=== PATIENT | male | born 1960 | race Caucasian/White ===

== ENCOUNTER 2017-01-17 23:25 | Emergency (ER) | payer MEDICAID, OTHER ==
[~2017-01-17] VITALS: Ht 180.3 cm; Wt 81.6 kg
[~2017-01-17 23:25] MED LIST: BUPR75TA3 PO; HYDR-552 PO; RISP0.253 PO
--- NOTE | 2017-01-17 23:32 | NUR ---
Called fr [facility], no answer.
--- NOTE | 2017-01-18 | NUR ---
TO BED 8 AMBULATORY C/O SUICIDAL IDEATION WITH PLAN TO HANG HIMSELF. PT AAOX4 NO ACUTE DISTRESS NOTED, RESP EVEN AND UNALBORED. NOTED HEAVY SMEEL OF ETOH. PT ADMITS TO DRINKING ALCOHOL TONIGHT. PLACE PT ON HOSPITAL GOWN, ALL SHARPS AND BELONGINGS REMOVED FROM ROOM. CALL LIGHT WITHIN REACH. WILL CONTINUE TO MONITOR PT CLOSELY.
[2017-01-18 00:41] LABS: BASOPHILS # (AUTO) 0.1 /CMM (0.0-0.2); BASOPHILS % (AUTO) 0.7 % (0.0-2.0); EOSINOPHILS # (AUTO) 0.4 /CMM (0.0-0.7); EOSINOPHILS % (AUTO) 4.9 % (0.0-6.0); HEMATOCRIT 37 % (39-51); HEMOGLOBIN 12.5 g/dL (13.5-17.5); LYMPHOCYTES # (AUTO) 2.9 /CMM (0.8-4.8); LYMPHOCYTES % (AUTO) 31.7 % (20.0-44.0); MEAN CORPUSCULAR HEMOGLOBIN 30 PG (26.0-33.0); MEAN CORPUSCULAR HGB CONC 34 g/dl (31.0-36.0); MEAN CORPUSCULAR VOLUME 88 fL (80-96); MONOCYTES # (AUTO) 0.6 /CMM (0.1-1.30); MONOCYTES % (AUTO) 6.9 % (2.0-12.0); NEUTROPHILS # (AUTO) 5.1 /CMM (1.8-8.9); NEUTROPHILS % (AUTO) 55.8 % (43.0-81.0); PLATELET COUNT (AUTO) 271 /CMM (150-450); RDW COEFFICIENT OF VARIATION 13.5 (11.5-15.0); WHITE BLOOD COUNT (AUTO) 9.1 K/uL (4.3-11.0)
[2017-01-18 00:52] LABS: CALCIUM, SERUM 8.5 mg/dL (8.5-10.1); CREATININE 1.1 mg/dL (0.6-1.3); POTASSIUM 3.1 mmol/L (3.5-5.1)
[2017-01-18] MEDS ORDERED: WATER FOR INJECTION,STERILE 10 ML ONE (00:55)
[2017-01-18] MEDS ORDERED: OLANZAPINE 10 MG VIAL IM ONE (00:55)
[2017-01-18 00:56] LABS: ALBUMIN 3.4 g/dL (3.4-5.0); BILIRUBIN,DIRECT 0.1 mg/dL (0.0-0.2); BILIRUBIN,TOTAL 0.4 mg/dL (0.2-1.0); TOTAL PROTEIN, SERUM 6.8 g/dL (6.4-8.2)
[2017-01-18 00:58] LABS: SALICYLATE 0.8 mg/dL (2.8-20.0)
[2017-01-18] MEDS: OLANZAPINE 10 MG VIAL IM ONE (01:14)
--- NOTE | 2017-01-18 01:14 | NUR ---
PT MEDICATED ORDERED.
--- NOTE | 2017-01-18 02:25 | NUR ---
PT ASLEEP, NO ACUTE DISTRESS NOTED, RESP EVEN AND UNLABORED. CALL LIGHT WITHIN [facility]. WILL CONTINUE TO MONITOR PT.
[2017-01-18 02:52] LABS: BILIRUBIN,URINE NEGATIVE (NEGATIVE); BLOOD, URINE NEGATIVE Ery/uL (NEGATIVE); KETONES,URINE NEGATIVE (NEGATIVE); LEUKOCYTE ESTERASE ,URINE NEGATIVE (NEGATIVE); NITRITE, URINE NEGATIVE (NEGATIVE); PROTEIN,URINE NEGATIVE (NEGATIVE); UGLUCOSE NEGATIVE (NEGATIVE); UROBILINOGEN,URINE 0.2 EU/dL (0.2)
[2017-01-18 02:55] LABS: APPEARANCE,URINE CLEAR (CLEAR); COLOR,URINE STRAW (YELLOW)
[2017-01-18 03:04] LABS: CANNABINOID, URINE NEGATIVE (NEGATIVE); PHENCYCLIDINE SCREEN,URINE NEGATIVE (NEGATIVE)
--- NOTE | 2017-01-18 04:25 | NUR ---
PT ASLEEP, NO ACUTE DISTRESS NOTED, RESP EVEN AND UNLABORED. CALL LIGHT WITHIN REACH. WILL CONTINUE TO MONITOR PT CLOSELY.
--- NOTE | 2017-01-18 04:37 | NUR ---
BRITNEY MURRAY AT BEDSIDE TO RE-EVAL PT. PT DENIES SI OR HI AT THIS TIME. PT STATES "I FEEL A LOT BETTER".
[2017-01-18] MEDS ORDERED: POTASSIUM CHLORIDE 20 MEQ TAB.PRT.SR PO ONE (05:40)
[2017-01-18] MEDS: POTASSIUM CHLORIDE 20 MEQ TAB.PRT.SR PO ONE (05:42)
--- NOTE | 2017-01-18 05:50 | NUR ---
Patient discharged to home in stable condition. Written and verbal after care instructions given. Patient verbalizes understanding of instruction. ambulatory with a steady gait noted. pt aaox4 no acute distress noted, resp even and unlabored. pt denies si or hi at this time.
[2017-01-18 05:51] VITALS: BP 135/73
== END 2017-01-18 05:52 | disposition home or self-care (01) ==
LOC: ER 23:28
DX: F20.9 Schizophrenia, unspecified (principal); F10.129 Alcohol abuse with intoxication, unspecified; F32.9 Major depressive disorder, single episode, unspecified; F17.200 Nicotine dependence, unspecified, uncomplicated; R79.89 Other specified abnormal findings of blood chemistry; Z91.19 Patient's noncompliance with other medical treatment and regimen
CPT/HCPCS: 36415; 80048; 80076; 80305; 80329; 81001; 82962; 85025; 99284; A4606; G0480 ×2; J3490; Z7610; 81000-TC; G6039-TC

== ENCOUNTER 2017-04-13 00:20 | Emergency (ER) | payer OTHER ==
[~2017-04-13] VITALS: Ht 182.9 cm; Wt 81.6 kg
[2017-04-13 00:25] VITALS: BP 160/105
== END 2017-04-13 01:18 | disposition home or self-care (01) ==
LOC: ER 00:23
DX: K08.89 Other specified disorders of teeth and supporting structures (principal); F32.9 Major depressive disorder, single episode, unspecified; F20.9 Schizophrenia, unspecified; F17.200 Nicotine dependence, unspecified, uncomplicated
CPT/HCPCS: 99282; A4606; Z7610

== ENCOUNTER 2017-04-21 00:26 | Emergency (ER) | payer OTHER ==
[~2017-04-21] VITALS: Ht 180.3 cm; Wt 81.6 kg
--- NOTE | 2017-04-21 00:38 | NUR ---
called pt in wr, no response
[2017-04-21 02:20] VITALS: BP 160/110
== END 2017-04-21 02:43 | disposition home or self-care (01) ==
LOC: ER 00:29
DX: Z76.0 Encounter for issue of repeat prescription (principal); F32.9 Major depressive disorder, single episode, unspecified; I10 Essential (primary) hypertension; F20.9 Schizophrenia, unspecified; F17.200 Nicotine dependence, unspecified, uncomplicated; Z98.890 Other specified postprocedural states
CPT/HCPCS: 99283; A4606; Z7610

== ENCOUNTER 2017-05-31 23:15 | Emergency (ER) | payer OTHER ==
[~2017-05-31] VITALS: Ht 175.3 cm; Wt 81.6 kg
--- NOTE | 2017-06-01 00:24 | NUR ---
CALLED FOR TRIAGE; STATES "AM GONNA USE THE RESTROOM AND WILL BE BACK"
[2017-06-01 00:46] VITALS: BP 154/105
== END 2017-06-01 01:10 | disposition home or self-care (01) ==
LOC: ER 23:25
DX: R07.81 Pleurodynia (principal); F32.9 Major depressive disorder, single episode, unspecified; F17.200 Nicotine dependence, unspecified, uncomplicated; F20.9 Schizophrenia, unspecified; Y04.0XXA Assault by unarmed brawl or fight, initial encounter; Y92.89 Other specified places as the place of occurrence of the external cause; Y93.89 Activity, other specified; Y99.8 Other external cause status
CPT/HCPCS: 99282; A4606; Z7610

== ENCOUNTER 2017-07-12 23:39 | Emergency (ER) | payer OTHER ==
[~2017-07-12] VITALS: Ht 182.9 cm; Wt 81.6 kg
[2017-07-13 00:01] VITALS: BP 158/116
== END 2017-07-13 01:16 | disposition home or self-care (01) ==
LOC: ER 23:53
DX: K21.9 Gastro-esophageal reflux disease without esophagitis (principal); F17.200 Nicotine dependence, unspecified, uncomplicated
CPT/HCPCS: 99283; A4606; Z7610

== ENCOUNTER 2017-07-14 00:33 | Emergency (ER) | payer OTHER ==
[~2017-07-14] VITALS: Ht 177.8 cm; Wt 90.7 kg
[2017-07-14] MEDS ORDERED: diphenhydrAMINE HCL 50 MG/ML VIAL ONE (00:36)
[2017-07-14] MEDS ORDERED: HALOPERIDOL LACTATE INJ 5 MG/ML VIAL ONE ×2 (00:37→01:40)
--- NOTE | 2017-07-14 00:40 | NUR ---
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 PER EMS PATIENT WAS LAYING ON THE GROUND, BYSTANDERS CALLED 911. PT ASSISTED TO ER BED, SKIN WARM AND DRY, RR EVEN AND UNLABORED. PT PLACED ON FUEL TECHNICIAN. AWAITING ORDERS FROM PROVIDER
--- NOTE | 2017-07-14 00:43 | NUR ---
MEDICATED PT ORDERED
[2017-07-14] MEDS ORDERED: diphenhydrAMINE HCL 50 MG/ML VIAL IM ONE (01:00)
[2017-07-14] MEDS ORDERED: HALOPERIDOL LACTATE INJ 5 MG/ML VIAL IM ONE ×2 (01:00→02:00)
--- NOTE | 2017-07-14 04:17 | NUR ---
PATIENT IS RESTING IN ER BED, NAD NOTED, SKIN WARM AND DRY. PATIENT IS BREATHING EFFORTLESSLY. WILL CONTINUE TO MONITOR
--- NOTE | 2017-07-14 06:51 | NUR ---
pt ok to discharge per dr self. Patient discharged to home in stable condition. Written and verbal after care instructions given. Patient verbalizes understanding of instruction.Patient is awake and alert to self, day, and place. pt ambulatory with a steady gait
[2017-07-14 06:52] VITALS: BP 138/79
== END 2017-07-14 06:52 | disposition home or self-care (01) ==
LOC: ER 00:35
DX: F10.129 Alcohol abuse with intoxication, unspecified (principal); R79.89 Other specified abnormal findings of blood chemistry; F17.200 Nicotine dependence, unspecified, uncomplicated; Z98.890 Other specified postprocedural states
CPT/HCPCS: 82962; 96372 ×3; 99284; A4606; J1200; J1630 ×2; Z7610

== ENCOUNTER 2017-07-25 22:40 | Emergency (ER) | payer OTHER ==
[~2017-07-25] VITALS: Ht 167.6 cm; Wt 81.6 kg
--- NOTE | 2017-07-25 23:38 | NUR ---
PT MUKESH C/O SENT FR [facility] FOR MEDICAL CLEARANCE. PT AOX3 RR EVEN AND UNLABORED. NO SOB NOTED. NAD NOTED. NO NVD AT THIS TIME. PT GOWNED WAITING FOR MD RIZVI. URINE COLLECTED.
[2017-07-25 23:49] LABS: BASOPHILS # (AUTO) 0.1 /CMM (0.0-0.2); BASOPHILS % (AUTO) 0.9 % (0.0-2.0); EOSINOPHILS # (AUTO) 0.3 /CMM (0.0-0.7); EOSINOPHILS % (AUTO) 3.2 % (0.0-6.0); HEMATOCRIT 44 % (39-51); HEMOGLOBIN 14.7 g/dL (13.5-17.5); LYMPHOCYTES # (AUTO) 2.3 /CMM (0.8-4.8); MEAN CORPUSCULAR HEMOGLOBIN 29 PG (26.0-33.0); MEAN CORPUSCULAR HGB CONC 34 g/dl (31.0-36.0); MEAN CORPUSCULAR VOLUME 87 fL (80-96); MONOCYTES % (AUTO) 11.5 % (2.0-12.0); NEUTROPHILS # (AUTO) 5.2 /CMM (1.8-8.9); NEUTROPHILS % (AUTO) 58.4 % (43.0-81.0); PLATELET COUNT (AUTO) 328 /CMM (150-450); RDW COEFFICIENT OF VARIATION 15.2 (11.5-15.0); RED BLOOD CELL COUNT(AUTO) 5.06 MIL/uL (4.5-6.0); WHITE BLOOD COUNT (AUTO) 8.8 K/uL (4.3-11.0)
[2017-07-25 23:56] LABS: APPEARANCE,URINE CLEAR (CLEAR); BILIRUBIN,URINE NEGATIVE (NEGATIVE); BLOOD, URINE NEGATIVE Ery/uL (NEGATIVE); COLOR,URINE YELLOW (YELLOW); KETONES,URINE NEGATIVE (NEGATIVE); LEUKOCYTE ESTERASE ,URINE NEGATIVE (NEGATIVE); NITRITE, URINE NEGATIVE (NEGATIVE); PROTEIN,URINE NEGATIVE (NEGATIVE); UGLUCOSE NEGATIVE (NEGATIVE); UROBILINOGEN,URINE 0.2 EU/dL (0.2)
[2017-07-25 23:58] LABS: CALCIUM, SERUM 9.8 mg/dL (8.5-10.1); CARBON DIOXIDE 29 mmol/L (21-32); CHLORIDE 103 mmol/L (98-107); CREATININE 1.2 mg/dL (0.6-1.3); GLUCOSE 86 mg/dL (74-106); SODIUM SERUM 140 mmol/L (136-145); UREA NITROGEN, BLOOD 20 mg/dL (7-18)
[2017-07-26 00:04] LABS: ALANINE AMINOTRANSFERASE 63 U/L (12-78); ALBUMIN 4.3 g/dL (3.4-5.0); ALCOHOL, BLOOD < 3 mg/dL (0-0); ALKALINE PHOSPHATASE 77 U/L (46-116); ASPARTATE AMINOTRANSFERASE 28 U/L (15-37); BILIRUBIN,DIRECT 0.1 mg/dL (0.0-0.2); BILIRUBIN,TOTAL 0.4 mg/dL (0.2-1.0); TOTAL PROTEIN, SERUM 8.3 g/dL (6.4-8.2)
[2017-07-26 00:05] LABS: ACETAMINOPHEN 0 ug/ml (10-30); SALICYLATE 0.7 mg/dL (2.8-20.0)
--- NOTE | 2017-07-26 00:17 | NUR ---
Patient discharged to home in stable condition. Written and verbal after care instructions given. Patient verbalizes understanding of instruction. ambulatory with a steady gait
[2017-07-26 00:18] VITALS: BP 123/78
== END 2017-07-26 00:19 | disposition home or self-care (01) ==
LOC: ER 22:41
DX: F32.9 Major depressive disorder, single episode, unspecified (principal); F17.200 Nicotine dependence, unspecified, uncomplicated; F20.9 Schizophrenia, unspecified; Z98.890 Other specified postprocedural states
CPT/HCPCS: 36415; 80048; 80076; 80305; 80329; 81001; 85025; 99284; A4606; G0480 ×2; Z7610; 81000-TC

== ENCOUNTER 2017-09-07 22:49 | Emergency (ER) | payer OTHER ==
[~2017-09-07] VITALS: Ht 182.9 cm; Wt 86.2 kg
--- NOTE | 2017-09-07 23:13 | NUR ---
ATTEMPTED TO CONTACT PT X 1 NO ANSWER
[2017-09-08 01:24] LABS: BASOPHILS # (AUTO) 0.1 /CMM (0.0-0.2); BASOPHILS % (AUTO) 0.6 % (0.0-2.0); EOSINOPHILS # (AUTO) 0.4 /CMM (0.0-0.7); HEMATOCRIT 43 % (39-51); HEMOGLOBIN 14.3 g/dL (13.5-17.5); LYMPHOCYTES # (AUTO) 2.6 /CMM (0.8-4.8); LYMPHOCYTES % (AUTO) 28.9 % (20.0-44.0); MEAN CORPUSCULAR HEMOGLOBIN 29 PG (26.0-33.0); MEAN CORPUSCULAR HGB CONC 33 g/dl (31.0-36.0); MEAN CORPUSCULAR VOLUME 87 fL (80-96); MONOCYTES # (AUTO) 0.7 /CMM (0.1-1.30); MONOCYTES % (AUTO) 8.2 % (2.0-12.0); NEUTROPHILS # (AUTO) 5.2 /CMM (1.8-8.9); NEUTROPHILS % (AUTO) 58.3 % (43.0-81.0); PLATELET COUNT (AUTO) 299 /CMM (150-450); RDW COEFFICIENT OF VARIATION 14.2 (11.5-15.0); RED BLOOD CELL COUNT(AUTO) 4.94 MIL/uL (4.5-6.0)
[2017-09-08 01:43] LABS: ALANINE AMINOTRANSFERASE 51 U/L (12-78); ALBUMIN 3.9 g/dL (3.4-5.0); ALCOHOL, BLOOD < 3 mg/dL (0-0); ALKALINE PHOSPHATASE 91 U/L (46-116); ASPARTATE AMINOTRANSFERASE 23 U/L (15-37); BILIRUBIN,TOTAL 0.3 mg/dL (0.2-1.0); CALCIUM, SERUM 9.7 mg/dL (8.5-10.1); CARBON DIOXIDE 25 mmol/L (21-32); CHLORIDE 105 mmol/L (98-107); CREATININE 1.2 mg/dL (0.6-1.3); GLUCOSE 83 mg/dL (74-106); POTASSIUM 3.4 mmol/L (3.5-5.1); SODIUM SERUM 140 mmol/L (136-145); TOTAL PROTEIN, SERUM 7.6 g/dL (6.4-8.2); UREA NITROGEN, BLOOD 21 mg/dL (7-18)
[2017-09-08 01:46] LABS: ACETAMINOPHEN 0 ug/ml (10-30); SALICYLATE 0.7 mg/dL (2.8-20.0)
[2017-09-08 02:33] LABS: APPEARANCE,URINE SL CLOUDY (CLEAR); BILIRUBIN,URINE NEGATIVE (NEGATIVE); BLOOD, URINE NEGATIVE Ery/uL (NEGATIVE); COLOR,URINE YELLOW (YELLOW); KETONES,URINE NEGATIVE (NEGATIVE); LEUKOCYTE ESTERASE ,URINE NEGATIVE (NEGATIVE); NITRITE, URINE NEGATIVE (NEGATIVE); PROTEIN,URINE NEGATIVE (NEGATIVE); UGLUCOSE NEGATIVE (NEGATIVE); UROBILINOGEN,URINE 0.2 EU/dL (0.2)
--- NOTE | 2017-09-08 03:22 | NUR ---
Patient discharged to home in stable condition. Written and verbal after care instructions given. Patient verbalizes understanding of instruction.
[2017-09-08 03:23] VITALS: BP 128/89
== END 2017-09-08 03:26 | disposition home or self-care (01) ==
LOC: ER 22:54
DX: R45.851 Suicidal ideations (principal); F10.10 Alcohol abuse, uncomplicated; Z98.890 Other specified postprocedural states
CPT/HCPCS: 36415; 80048; 80076; 80305; 80329; 81001; 85025; 99284; A4606; G0480 ×2; Z7610; 81000-TC

== ENCOUNTER 2017-12-29 19:05 | Emergency (ER) | payer OTHER ==
[~2017-12-29] VITALS: Ht 182.9 cm; Wt 81.6 kg
[2017-12-29 19:18] VITALS: BP 127/89
--- NOTE | 2017-12-29 19:19 | NUR ---
PT AMBULATORY TO ER BED 14. PT BIB SELF, HERE FOR MEDICAL CLEARANCE FOR [facility]. PT PLACED ON ASSEMBLER BICYCLE. VSS/RESP EVEN UNLABORED/NAD NOTED/SKIN WARM AND DRY/AFEBRILE/AOX4. MD AT BEDSIDE FOR EVAL.
[2017-12-29 20:07] LABS: BASOPHILS # (AUTO) 0.1 /CMM (0.0-0.2); BASOPHILS % (AUTO) 0.5 % (0.0-2.0); EOSINOPHILS # (AUTO) 0.2 /CMM (0.0-0.7); EOSINOPHILS % (AUTO) 1.3 % (0.0-6.0); HEMATOCRIT 44 % (39-51); HEMOGLOBIN 15.3 g/dL (13.5-17.5); LYMPHOCYTES # (AUTO) 1.8 /CMM (0.8-4.8); MEAN CORPUSCULAR HEMOGLOBIN 30 PG (26.0-33.0); MEAN CORPUSCULAR HGB CONC 35 g/dl (31.0-36.0); MEAN CORPUSCULAR VOLUME 86 fL (80-96); MONOCYTES # (AUTO) 0.6 /CMM (0.1-1.30); MONOCYTES % (AUTO) 4.5 % (2.0-12.0); NEUTROPHILS # (AUTO) 9.9 /CMM (1.8-8.9); NEUTROPHILS % (AUTO) 79.7 % (43.0-81.0); PLATELET COUNT (AUTO) 345 /CMM (150-450); RDW COEFFICIENT OF VARIATION 13.9 (11.5-15.0); RED BLOOD CELL COUNT(AUTO) 5.14 MIL/uL (4.5-6.0); WHITE BLOOD COUNT (AUTO) 12.6 K/uL (4.3-11.0)
[2017-12-29 20:15] LABS: CALCIUM, SERUM 10.1 mg/dL (8.5-10.1); CARBON DIOXIDE 29 mmol/L (21-32); CHLORIDE 102 mmol/L (98-107); CREATININE 1.1 mg/dL (0.6-1.3); GLUCOSE 77 mg/dL (74-106); POTASSIUM 4.5 mmol/L (3.5-5.1); SODIUM SERUM 138 mmol/L (136-145); UREA NITROGEN, BLOOD 20 mg/dL (7-18)
[2017-12-29 20:20] LABS: ALANINE AMINOTRANSFERASE 36 U/L (12-78); ALBUMIN 4.3 g/dL (3.4-5.0); ALCOHOL, BLOOD < 3 mg/dL (0-0); ALKALINE PHOSPHATASE 81 U/L (46-116); ASPARTATE AMINOTRANSFERASE 21 U/L (15-37); BILIRUBIN,DIRECT 0.2 mg/dL (0.0-0.2); BILIRUBIN,TOTAL 0.6 mg/dL (0.2-1.0); TOTAL PROTEIN, SERUM 8.5 g/dL (6.4-8.2)
[2017-12-29 20:21] LABS: ACETAMINOPHEN < 10 ug/ml (10-30); SALICYLATE 0.6 mg/dL (2.8-20.0)
[2017-12-29 21:21] LABS: APPEARANCE,URINE Clear (CLEAR); BILIRUBIN,URINE Negative (NEGATIVE); BLOOD, URINE Negative Ery/uL (NEGATIVE); COLOR,URINE Yellow (YELLOW); KETONES,URINE Negative (NEGATIVE); LEUKOCYTE ESTERASE ,URINE Negative (NEGATIVE); NITRITE, URINE Negative (NEGATIVE); PROTEIN,URINE Negative (NEGATIVE); UGLUCOSE Negative (NEGATIVE); UROBILINOGEN,URINE 0.2 EU/dL (0.2)
--- NOTE | 2017-12-29 22:36 | NUR ---
PT ACCEPTED TO [facility] BY DR MARTIN. # FOR REPORT [phone]
--- NOTE | 2017-12-29 22:40 | NUR ---
BENJY CALLED [facility] [phone] TRANSPORT #[id number]
--- NOTE | 2017-12-29 23:15 | NUR ---
REPORT CALLED TO STANLEY WITH [facility] FOR MELISSA.
--- NOTE | 2017-12-30 00:28 | NUR ---
REPORT GIVEN TO ALICIA FOR PT TRANSFER TO [facility] FOR MELISSA.
== END 2017-12-30 00:30 ==
LOC: ER 19:06
DX: F20.9 Schizophrenia, unspecified (principal); Z00.00 Encounter for general adult medical examination without abnormal findings; I10 Essential (primary) hypertension; K21.9 Gastro-esophageal reflux disease without esophagitis; F10.10 Alcohol abuse, uncomplicated; Z98.890 Other specified postprocedural states
CPT/HCPCS: 36415; 80048; 80076; 80305; 80329; 81001; 85025; 99285; A4606; G0480 ×2; J7050; Z7610; 81000-TC

== ENCOUNTER 2018-04-10 00:16 | Emergency (ER) | payer OTHER ==
[~2018-04-10] VITALS: Ht 177.8 cm; Wt 81.6 kg
--- NOTE | 2018-04-10 00:20 | NUR ---
CALLED FOR TRIAGE "IN THE RESTROOM"
--- NOTE | 2018-04-10 00:30 | NUR ---
GRACIA AGAIN "IN RESTROOM"
--- NOTE | 2018-04-10 00:36 | NUR ---
CALLED BY LAB. INFORMED "STILL IN RESTROOM"
--- NOTE | 2018-04-10 00:45 | NUR ---
INFORMED BY WOOD CLUB NECK WHIPPER "PT IS NOT IN RESTROOM OR LOBBY"
[2018-04-10 01:29] VITALS: BP 138/78
[2018-04-10 01:33] LABS: BASOPHILS # (AUTO) 0.1 /CMM (0.0-0.2); BASOPHILS % (AUTO) 0.7 % (0.0-2.0); EOSINOPHILS % (AUTO) 1.4 % (0.0-6.0); HEMATOCRIT 41 % (39-51); HEMOGLOBIN 14.1 g/dL (13.5-17.5); LYMPHOCYTES # (AUTO) 1.8 /CMM (0.8-4.8); LYMPHOCYTES % (AUTO) 21.6 % (20.0-44.0); MEAN CORPUSCULAR HEMOGLOBIN 31 PG (26.0-33.0); MEAN CORPUSCULAR HGB CONC 34 g/dl (31.0-36.0); MEAN CORPUSCULAR VOLUME 91 fL (80-96); MONOCYTES # (AUTO) 0.5 /CMM (0.1-1.30); MONOCYTES % (AUTO) 6.6 % (2.0-12.0); NEUTROPHILS # (AUTO) 5.7 /CMM (1.8-8.9); NEUTROPHILS % (AUTO) 69.7 % (43.0-81.0); PLATELET COUNT (AUTO) 306 /CMM (150-450); RED BLOOD CELL COUNT(AUTO) 4.55 MIL/uL (4.5-6.0); WHITE BLOOD COUNT (AUTO) 8.2 K/uL (4.3-11.0)
[2018-04-10 01:44] LABS: CALCIUM, SERUM 9.3 mg/dL (8.5-10.1); CREATININE 1.1 mg/dL (0.6-1.3); POTASSIUM 3.8 mmol/L (3.5-5.1)
[2018-04-10 01:50] LABS: BILIRUBIN,DIRECT 0.1 mg/dL (0.0-0.2); BILIRUBIN,TOTAL 0.6 mg/dL (0.2-1.0); TOTAL PROTEIN, SERUM 7.8 g/dL (6.4-8.2)
[2018-04-10 01:51] LABS: SALICYLATE 0.7 mg/dL (2.8-20.0)
[2018-04-10 05:36] LABS: APPEARANCE,URINE CLEAR (CLEAR); BILIRUBIN,URINE NEGATIVE (NEGATIVE); BLOOD, URINE NEGATIVE Ery/uL (NEGATIVE); COLOR,URINE YELLOW (YELLOW); KETONES,URINE NEGATIVE (NEGATIVE); LEUKOCYTE ESTERASE ,URINE NEGATIVE (NEGATIVE); NITRITE, URINE NEGATIVE (NEGATIVE); PROTEIN,URINE NEGATIVE (NEGATIVE); UGLUCOSE NEGATIVE (NEGATIVE); UROBILINOGEN,URINE 0.2 EU/dL (0.2)
== END 2018-04-10 06:49 | disposition home or self-care (01) ==
LOC: ER 00:16
DX: Z04.6 Encounter for general psychiatric examination, requested by authority (principal); F32.9 Major depressive disorder, single episode, unspecified; I10 Essential (primary) hypertension; K21.9 Gastro-esophageal reflux disease without esophagitis; F20.9 Schizophrenia, unspecified; Z98.890 Other specified postprocedural states
CPT/HCPCS: 36415; 80048-TC; 80076-TC; 80305; 81000-TC; 85025-TC; A4606; G0480; Z7610

== ENCOUNTER 2018-04-10 08:28 | Emergency (ER) | payer OTHER ==
[~2018-04-10] VITALS: Ht 182.9 cm; Wt 79.4 kg
[2018-04-10 08:31] VITALS: BP 138/90
[2018-04-10] MEDS ORDERED: predniSONE 20 MG TABLET ONE (08:51)
[2018-04-10] MEDS ORDERED: IPRATROPIUM NEB FS 0.5 MG/2.5 ML AMPUL.NEB ONE (08:54)
[2018-04-10] MEDS ORDERED: ALBUTEROL FS 2.5 MG/3 ML VIAL.NEB ONE (08:54)
[2018-04-10] MEDS ORDERED: ALBUTEROL FS 2.5 MG/3 ML VIAL.NEB NEB ONE (09:00)
[2018-04-10] MEDS ORDERED: predniSONE 20 MG TABLET PO ONE (09:00)
[2018-04-10] MEDS ORDERED: IPRATROPIUM NEB FS 0.5 MG/2.5 ML AMPUL.NEB NEB ONE (09:00)
== END 2018-04-10 09:30 | disposition home or self-care (01) ==
LOC: ER 08:33
DX: J44.1 Chronic obstructive pulmonary disease with (acute) exacerbation (principal); I10 Essential (primary) hypertension; K21.9 Gastro-esophageal reflux disease without esophagitis; F20.9 Schizophrenia, unspecified; Z87.891 Personal history of nicotine dependence; Z98.890 Other specified postprocedural states
CPT/HCPCS: A4606; Z7610

== ENCOUNTER 2018-04-27 00:44 | Emergency (ER) | payer OTHER ==
[~2018-04-27] VITALS: Ht 180.3 cm; Wt 81.6 kg
--- NOTE | 2018-04-27 00:55 | NUR ---
PT NOT IN LOBBY.
--- NOTE | 2018-04-27 01:30 | NUR ---
INFORMED PT "STEPPED OUT"
--- NOTE | 2018-04-27 02:02 | NUR ---
PT STILL NOT IN LOBBY OR OUTSIDE ER.
--- NOTE | 2018-04-27 02:10 | NUR ---
STATES "I DONT WANNA COME INSIDE THE ER UNTIL I PROVIDE URINE. SO I WILL STAY HERE AND WATCH TV AND WILL LET YOU KNOW AFTER I URINATE". GIVEN WATER TO DRINK.
[2018-04-27 02:26] LABS: BASOPHILS % (AUTO) 0.5 % (0.0-2.0); EOSINOPHILS % (AUTO) 2.2 % (0.0-6.0); HEMATOCRIT 44 % (39-51); HEMOGLOBIN 14.6 g/dL (13.5-17.5); LYMPHOCYTES # (AUTO) 2.4 /CMM (0.8-4.8); LYMPHOCYTES % (AUTO) 27.1 % (20.0-44.0); MEAN CORPUSCULAR HEMOGLOBIN 30 PG (26.0-33.0); MEAN CORPUSCULAR HGB CONC 34 g/dl (31.0-36.0); MEAN CORPUSCULAR VOLUME 91 fL (80-96); MONOCYTES # (AUTO) 0.7 /CMM (0.1-1.30); MONOCYTES % (AUTO) 7.5 % (2.0-12.0); NEUTROPHILS # (AUTO) 5.6 /CMM (1.8-8.9); NEUTROPHILS % (AUTO) 62.7 % (43.0-81.0); PLATELET COUNT (AUTO) 298 /CMM (150-450); RDW COEFFICIENT OF VARIATION 13.5 (11.5-15.0); RED BLOOD CELL COUNT(AUTO) 4.79 MIL/uL (4.5-6.0)
[2018-04-27 02:50] LABS: CALCIUM, SERUM 8.9 mg/dL (8.5-10.1); CREATININE 1.1 mg/dL (0.6-1.3)
[2018-04-27 02:56] LABS: BILIRUBIN,DIRECT 0.1 mg/dL (0.0-0.2); BILIRUBIN,TOTAL 0.6 mg/dL (0.2-1.0)
[2018-04-27 03:00] LABS: SALICYLATE 0.6 mg/dL (2.8-20.0)
--- NOTE | 2018-04-27 04:20 | NUR ---
AMBULATED TO ROOM WITH STEADY GAIT AFTER COLLECTING URINE. DENIES ANY MEDICAL C/O AT THIS TIME. RESP EVEN AND UNLABORED.
[2018-04-27 04:42] LABS: APPEARANCE,URINE CLEAR (CLEAR); BILIRUBIN,URINE NEGATIVE (NEGATIVE); BLOOD, URINE NEGATIVE Ery/uL (NEGATIVE); COLOR,URINE YELLOW (YELLOW); KETONES,URINE NEGATIVE (NEGATIVE); LEUKOCYTE ESTERASE ,URINE NEGATIVE (NEGATIVE); NITRITE, URINE NEGATIVE (NEGATIVE); PH,URINE 5.5 (5.0-8.0); PROTEIN,URINE NEGATIVE (NEGATIVE); UGLUCOSE NEGATIVE (NEGATIVE); UROBILINOGEN,URINE 0.2 EU/dL (0.2)
--- NOTE | 2018-04-27 05:47 | NUR ---
SPOKE TO ROCK/BROCK AT [facility] AND STATED "FAXED ALL TODAY'S RECORDS FOR REVIEW AND SEND PT AFTER 629". ALL RECORDS FAXED REQUESTED.
--- NOTE | 2018-04-27 06:43 | NUR ---
SPOKE TO ROCK GUTIÉRREZ AND STATED "I WILL CALL YOU SOON MY VIDEO INTERN IS DONE REVIEWING THE PAPERWORK".
--- NOTE | 2018-04-27 07:11 | NUR ---
REPORT GIVEN TO BELLE FUNES FOR MELISSA
--- NOTE | 2018-04-27 07:30 | NUR ---
REPORT GIVEN TO [facility] PAUL ADLER
[2018-04-27 07:34] VITALS: BP 127/77
== END 2018-04-27 07:31 ==
LOC: ER 00:47
DX: F10.10 Alcohol abuse, uncomplicated (principal); F32.9 Major depressive disorder, single episode, unspecified; F20.9 Schizophrenia, unspecified; I10 Essential (primary) hypertension; K21.9 Gastro-esophageal reflux disease without esophagitis; Z98.890 Other specified postprocedural states; Z79.899 Other long term (current) drug therapy; Y90.9 Presence of alcohol in blood, level not specified
CPT/HCPCS: 36415; 80048; 80076; 80305; 80329; 81001; 85025; 99284; A4606; G0480 ×2; Z7610; 81000-TC

== ENCOUNTER 2018-05-09 05:48 | Emergency (ER) | payer OTHER ==
[~2018-05-09] VITALS: Ht 182.9 cm; Wt 79.4 kg
--- NOTE | 2018-05-09 06:05 | NUR ---
PT REFUSES TO BE TRIAGED OR GIVE ANY INFO AT THIS TIME. STATES "I WILL BE THERE SHORTLY; JUST STARTED THIS MOVIE". AGREES TO HAVE BLOOD WORK DONE FOR PSYCH EVAL.
--- NOTE | 2018-05-09 06:10 | NUR ---
STATES "I WANNA WATCH THIS MOVIE FIRST AND THEN I CAN COME IN THE ROOM"
[2018-05-09 06:13] LABS: APPEARANCE,URINE CLEAR (CLEAR); BILIRUBIN,URINE NEGATIVE (NEGATIVE); BLOOD, URINE NEGATIVE Ery/uL (NEGATIVE); COLOR,URINE DARK YELLO (YELLOW); KETONES,URINE TRACE (NEGATIVE); LEUKOCYTE ESTERASE ,URINE NEGATIVE (NEGATIVE); NITRITE, URINE NEGATIVE (NEGATIVE); PH,URINE 6.5 (5.0-8.0); PROTEIN,URINE 1+ mg/dl (NEGATIVE); UGLUCOSE NEGATIVE (NEGATIVE); UROBILINOGEN,URINE 0.2 EU/dL (0.2)
[2018-05-09 06:14] LABS: BASOPHILS % (AUTO) 0.3 % (0.0-2.0); EOSINOPHILS % (AUTO) 0.3 % (0.0-6.0); HEMATOCRIT 45 % (39-51); HEMOGLOBIN 15.1 g/dL (13.5-17.5); LYMPHOCYTES # (AUTO) 1.8 /CMM (0.8-4.8); LYMPHOCYTES % (AUTO) 17.7 % (20.0-44.0); MEAN CORPUSCULAR HEMOGLOBIN 30 PG (26.0-33.0); MEAN CORPUSCULAR HGB CONC 34 g/dl (31.0-36.0); MEAN CORPUSCULAR VOLUME 90 fL (80-96); MONOCYTES % (AUTO) 9.4 % (2.0-12.0); NEUTROPHILS # (AUTO) 7.4 /CMM (1.8-8.9); NEUTROPHILS % (AUTO) 72.3 % (43.0-81.0); PLATELET COUNT (AUTO) 385 /CMM (150-450); RDW COEFFICIENT OF VARIATION 13.4 (11.5-15.0); RED BLOOD CELL COUNT(AUTO) 4.95 MIL/uL (4.5-6.0); WHITE BLOOD COUNT (AUTO) 10.2 K/uL (4.3-11.0)
[2018-05-09 06:23] LABS: BACTERIA,URINE None seen /HPF (None Seen); RBC,URINE NONE SEEN /HPF (0-2); SQUAMOUS EPITHELIAL CELL,UR Few /HPF (None Seen); WBC,URINE 0-2 /HPF (0-3)
[2018-05-09 06:37] LABS: CALCIUM, SERUM 9.9 mg/dL (8.5-10.1); CARBON DIOXIDE 27 mmol/L (21-32); CHLORIDE 103 mmol/L (98-107); CREATININE 1.3 mg/dL (0.6-1.3); GLUCOSE 75 mg/dL (74-106); POTASSIUM 3.5 mmol/L (3.5-5.1); SODIUM SERUM 142 mmol/L (136-145); UREA NITROGEN, BLOOD 27 mg/dL (7-18)
[2018-05-09 06:44] LABS: ALANINE AMINOTRANSFERASE 36 U/L (12-78); ALBUMIN 4.5 g/dL (3.4-5.0); ALKALINE PHOSPHATASE 78 U/L (46-116); ASPARTATE AMINOTRANSFERASE 27 U/L (15-37); BILIRUBIN,DIRECT 0.2 mg/dL (0.0-0.2); BILIRUBIN,TOTAL 1.6 mg/dL (0.2-1.0); TOTAL PROTEIN, SERUM 8.9 g/dL (6.4-8.2)
[2018-05-09 06:47] LABS: ACETAMINOPHEN < 10 ug/ml (10-30); SALICYLATE < 2.8 mg/dL (2.8-20.0)
[2018-05-09 06:48] LABS: ALCOHOL, BLOOD < 3 mg/dL (0-0)
--- NOTE | 2018-05-09 07:23 | NUR ---
CHECKED ON PT AND WHILE IN RESTROOM STATES "AM COMING OUT SOON" SECUTIRY MADE AWARE OF PT IN RESTROOM.
[2018-05-09 07:59] VITALS: BP 105/85
== END 2018-05-09 08:00 | disposition home or self-care (01) ==
LOC: ER 05:53
DX: F15.10 Other stimulant abuse, uncomplicated (principal); F20.9 Schizophrenia, unspecified; K21.9 Gastro-esophageal reflux disease without esophagitis; I10 Essential (primary) hypertension; F32.9 Major depressive disorder, single episode, unspecified; F10.10 Alcohol abuse, uncomplicated; Y90.9 Presence of alcohol in blood, level not specified; Z98.890 Other specified postprocedural states
CPT/HCPCS: 36415; 80048; 80076; 80305; 80329; 81001; 85025; 99284; A4606; G0480 ×2; Z7610; 81000-TC

== ENCOUNTER 2018-05-09 08:50 | Emergency (ER) | payer OTHER ==
[~2018-05-09] VITALS: Ht 180.3 cm; Wt 90.7 kg
[2018-05-09 09:00] VITALS: BP 115/0
[2018-05-09] MEDS ORDERED: LIDOCAINE VISCOUS 2% UD 15 ML UDC ONE (09:58)
[2018-05-09] MEDS ORDERED: MAG HYDROX/AL HYDROX/SIMETH 30 ML UDC ONE (09:58)
[2018-05-09] MEDS: MAG HYDROX/AL HYDROX/SIMETH 30 ML UDC PO ONE (10:01)
[2018-05-09] MEDS: LIDOCAINE VISCOUS 2% UD 15 ML UDC MM ONE (10:01)
== END 2018-05-09 10:04 | disposition home or self-care (01) ==
LOC: ER 09:04
DX: F15.10 Other stimulant abuse, uncomplicated (principal); R11.10 Vomiting, unspecified
CPT/HCPCS: A4606; Z7610

== ENCOUNTER 2018-06-07 13:32 | Emergency (ER) | payer OTHER ==
[~2018-06-07] VITALS: Ht 180.3 cm; Wt 91.2 kg
--- NOTE | 2018-06-07 13:50 | NUR ---
PT CAME HERE FOR MEDICAL CLEARANCE, WANTS TO COME IN VOLUNTARILY TO [facility] OR [facility], HE REPORTEDLY TOOK METH THIS MORNING. PT AAOX4. STATES SUICIDAL THOUGHTS, NO ACTIVE PLANS. NOTED CALM AND DIRECTABLE. SEEN BY PA. SAFETY AND COMFORT MEASURES PROVIDED. WILL MONITOR.
[2018-06-07] MEDS ORDERED: IV NS 0.9% 1,000 ML BAG IV ONE (14:30)
[2018-06-07] MEDS ORDERED: FAMOTIDINE/PF INJ 20 MG/2 ML VIAL IV ONE ×2 (14:30→14:52)
[2018-06-07] MEDS ORDERED: ASPIRIN 81 MG TAB.CHEW PO ONE (14:30)
[2018-06-07] MEDS ORDERED: QUETIAPINE FUMARATE 100 MG TABLET PO SCH (14:30)
[2018-06-07] MEDS ORDERED: MAG HYDROX/AL HYDROX/SIMETH 30 ML UDC PO ONE (14:30)
[2018-06-07] MEDS ORDERED: HYOSCYAMINE SULFATE 0.125 MG TAB.SUBL SL PRN (14:30)
[2018-06-07] MEDS ORDERED: hydrALAZINE HCL IV 20 MG VIAL IV ONE (14:30)
[2018-06-07 14:45] LABS: BASOPHILS # (AUTO) 0.2 /CMM (0.0-0.2); BASOPHILS % (AUTO) 2.8 % (0.0-2.0); EOSINOPHILS % (AUTO) 0.3 % (0.0-6.0); HEMATOCRIT 44 % (39-51); HEMOGLOBIN 14.7 g/dL (13.5-17.5); LYMPHOCYTES # (AUTO) 1.4 /CMM (0.8-4.8); LYMPHOCYTES % (AUTO) 15.9 % (20.0-44.0); MEAN CORPUSCULAR HEMOGLOBIN 29 PG (26.0-33.0); MEAN CORPUSCULAR HGB CONC 33 g/dl (31.0-36.0); MEAN CORPUSCULAR VOLUME 89 fL (80-96); MONOCYTES # (AUTO) 0.4 /CMM (0.1-1.30); NEUTROPHILS # (AUTO) 6.6 /CMM (1.8-8.9); PLATELET COUNT (AUTO) 420 /CMM (150-450); RDW COEFFICIENT OF VARIATION 13.4 (11.5-15.0); WHITE BLOOD COUNT (AUTO) 8.6 K/uL (4.3-11.0)
[2018-06-07] MEDS ORDERED: MAG HYDROX/AL HYDROX/SIMETH 30 ML UDC ONE (14:51)
[2018-06-07] MEDS ORDERED: QUETIAPINE FUMARATE 25 MG TABLET ONE ×2 (14:52→19:15)
[2018-06-07] MEDS ORDERED: ASPIRIN 81 MG TAB.CHEW ONE (14:52)
[2018-06-07 14:57] LABS: CALCIUM, SERUM 9.3 mg/dL (8.5-10.1); CARBON DIOXIDE 25 mmol/L (21-32); CHLORIDE 104 mmol/L (98-107); CREATININE 1.1 mg/dL (0.6-1.3); GLUCOSE 78 mg/dL (74-106); POTASSIUM 3.3 mmol/L (3.5-5.1); SODIUM SERUM 140 mmol/L (136-145); UREA NITROGEN, BLOOD 12 mg/dL (7-18)
[2018-06-07 15:04] LABS: ALANINE AMINOTRANSFERASE 39 U/L (12-78); ALBUMIN 4.3 g/dL (3.4-5.0); ALKALINE PHOSPHATASE 81 U/L (46-116); ASPARTATE AMINOTRANSFERASE 26 U/L (15-37); BILIRUBIN,DIRECT 0.1 mg/dL (0.0-0.2); BILIRUBIN,TOTAL 0.7 mg/dL (0.2-1.0); TOTAL PROTEIN, SERUM 7.8 g/dL (6.4-8.2)
[2018-06-07 15:05] LABS: ACETAMINOPHEN 0 ug/ml (10-30); ALCOHOL, BLOOD < 3 mg/dL (0-0); SALICYLATE 0.2 mg/dL (2.8-20.0)
[2018-06-07] MEDS ORDERED: CLONIDINE HCL 0.1 MG TABLET ONE (15:16)
[2018-06-07] MEDS ORDERED: FAMOTIDINE (20 MG) 20 MG TABLET ONE (15:16)
--- NOTE | 2018-06-07 15:23 | NUR ---
MEDICATED PER MARLYN, ACCOUNTING BOOKKEEPER, PT IRLANDA WELL. URINE COLLECTED & SENT TO LAB. PT CALM & COOPERATIVE, NAD NOTED @ THIS TIME.
[2018-06-07] MEDS ORDERED: CLONIDINE HCL 0.1 MG TABLET PO ONE (15:30)
[2018-06-07] MEDS ORDERED: FAMOTIDINE (20 MG) 20 MG TABLET PO ONE (15:30)
[2018-06-07 15:37] LABS: APPEARANCE,URINE Clear (CLEAR); BILIRUBIN,URINE Negative (NEGATIVE); BLOOD, URINE Negative Ery/uL (NEGATIVE); COLOR,URINE Yellow (YELLOW); KETONES,URINE Negative (NEGATIVE); LEUKOCYTE ESTERASE ,URINE Negative (NEGATIVE); NITRITE, URINE Negative (NEGATIVE); PH,URINE 7.5 (5.0-8.0); PROTEIN,URINE Negative (NEGATIVE); UGLUCOSE Negative (NEGATIVE); UROBILINOGEN,URINE 0.2 EU/dL (0.2)
--- NOTE | 2018-06-07 17:30 | NUR ---
Patient is resting comfortably in bed with eyes closed. Easily aroused. VSS
[2018-06-07 17:45] VITALS: BP 128/78
--- NOTE | 2018-06-07 18:55 | NUR ---
[facility] Jean accepted Dr. Ellison Report call [phone] ext.[phone]
--- NOTE | 2018-06-07 19:23 | NUR ---
CALLED [facility] & GAVE REPORT TO BELLE JAIN. PT MEGHAN, RICHARDSON NOTED @ THIS TIME & WILL CONT TO MONITOR.
== END 2018-06-07 20:31 ==
LOC: ER 13:33
DX: R45.851 Suicidal ideations (principal); F20.9 Schizophrenia, unspecified; F31.9 Bipolar disorder, unspecified; F15.10 Other stimulant abuse, uncomplicated; E87.6 Hypokalemia; K21.9 Gastro-esophageal reflux disease without esophagitis; I10 Essential (primary) hypertension; F10.10 Alcohol abuse, uncomplicated; Z98.890 Other specified postprocedural states; Y90.0 Blood alcohol level of less than 20 mg/100 ml; Z72.0 Tobacco use
CPT/HCPCS: 36415; 71045-TC; 80048-TC; 80076-TC; 80305; 81000-TC; 84484-TC; 85025-TC; A4606; G0480; J3490; J7030; Z7610

== ENCOUNTER 2018-07-22 03:55 | Emergency (ER) | payer OTHER ==
[~2018-07-22] VITALS: Ht 182.9 cm; Wt 79.4 kg
[~2018-07-22 03:55] MED LIST changes: +HYDR-4384 PO; -HYDR-552 PO
--- NOTE | 2018-07-22 03:59 | NUR ---
PATIENT STATED HE IS NOT READY TO COME BACK TO BE SEEN BY THE MD.
--- NOTE | 2018-07-22 04:30 | NUR ---
TO ER BED 15. C/O SI. AA/O X4. "I WANT TO FIND THE HIGHEST BUILDING AND JUMP OFF OF IT." AMBULATED TO BED WITH STABLE GAIT. VSS. NAD. WILL CONTINUE TO MONITOR.
[2018-07-22 05:12] LABS: BASOPHILS % (AUTO) 0.5 % (0.0-2.0); EOSINOPHILS % (AUTO) 4.1 % (0.0-6.0); HEMATOCRIT 41 % (39-51); HEMOGLOBIN 13.7 g/dL (13.5-17.5); LYMPHOCYTES # (AUTO) 2.5 /CMM (0.8-4.8); LYMPHOCYTES % (AUTO) 39.3 % (20.0-44.0); MEAN CORPUSCULAR HGB CONC 34 g/dl (31.0-36.0); MEAN CORPUSCULAR VOLUME 90 fL (80-96); MONOCYTES # (AUTO) 0.6 /CMM (0.1-1.30); NEUTROPHILS % (AUTO) 47.1 % (43.0-81.0); PLATELET COUNT (AUTO) 349 /CMM (150-450); RDW COEFFICIENT OF VARIATION 13.5 (11.5-15.0); RED BLOOD CELL COUNT(AUTO) 4.53 MIL/uL (4.5-6.0); WHITE BLOOD COUNT (AUTO) 6.3 K/uL (4.3-11.0)
[2018-07-22 05:29] LABS: CARBON DIOXIDE 26 mmol/L (21-32); CHLORIDE 102 mmol/L (98-107); CREATININE 1.1 mg/dL (0.6-1.3); GLUCOSE 87 mg/dL (74-106); SODIUM SERUM 137 mmol/L (136-145); UREA NITROGEN, BLOOD 12 mg/dL (7-18)
[2018-07-22 05:34] LABS: ALCOHOL, BLOOD < 3 mg/dL (0-0)
--- NOTE | 2018-07-22 05:47 | NUR ---
CALLED [facility], SPOKE TO ZAC, NO BEDS AVAILABLE AT THIS TIME. UNABLE TO REACH INTAKE.
--- NOTE | 2018-07-22 05:58 | NUR ---
SPOKE TO ARI LUCERO REGARDING PLACEMENT.
[2018-07-22] MEDS ORDERED: POTASSIUM CHLORIDE 20 MEQ TAB.PRT.SR PO ONE (06:03)
[2018-07-22] MEDS: POTASSIUM CHLORIDE 20 MEQ TAB.PRT.SR PO ONE (06:06)
--- NOTE | 2018-07-22 06:06 | NUR ---
[facility] FOR PLACEMENT.
--- NOTE | 2018-07-22 06:53 | NUR ---
ERNST ACUNA AT BEDSIDE FOR EVAL.
--- NOTE | 2018-07-22 07:05 | NUR ---
Patient is resting comfortably in bed with eyes closed. Easily aroused. VSS
--- NOTE | 2018-07-22 07:19 | NUR ---
REPORT GIVEN TO ONCOMING SHIFT BELLE NGUYEN. PT STABLE CONDITION. VSS. NAD.
[2018-07-22 07:20] VITALS: BP 125/80
[2018-07-22 08:29] LABS: CALCIUM, SERUM 8.6 mg/dL (8.5-10.1); POTASSIUM 3.2 mmol/L (3.5-5.1)
--- NOTE | 2018-07-22 10:23 | NUR ---
Pt accepted to [facility] under Dr. Solo number for report is [phone]
--- NOTE | 2018-07-22 10:31 | NUR ---
Called [facility] for transport, eta 1 hour trip# [phone]
[2018-08-16] MEDS ORDERED: TRAZ-213 PO (11:39)
[2018-08-16] MEDS ORDERED: IBUP-1957 PO (11:39)
[2018-08-16] MEDS ORDERED: QUET25TA PO (11:39)
[2018-08-16] MEDS ORDERED: ALBU18HF2 IH (11:39)
== END 2018-07-22 13:05 | disposition home or self-care (01) ==
LOC: ER 03:57
DX: R45.851 Suicidal ideations (principal); E87.6 Hypokalemia; I10 Essential (primary) hypertension; K21.9 Gastro-esophageal reflux disease without esophagitis; F31.9 Bipolar disorder, unspecified; F20.9 Schizophrenia, unspecified; F10.10 Alcohol abuse, uncomplicated; F17.200 Nicotine dependence, unspecified, uncomplicated; F15.10 Other stimulant abuse, uncomplicated; Y90.0 Blood alcohol level of less than 20 mg/100 ml; Z98.890 Other specified postprocedural states
CPT/HCPCS: 36415; 80048-TC; 80305; 85025-TC; A4606; G0480; Z7610

== ENCOUNTER 2018-10-14 06:53 | Emergency (ER) | payer OTHER ==
[~2018-10-14 06:53] MED LIST changes: +ALBU18HF2 IH; -BUPR75TA3 PO; +IBUP-1957 PO; +QUET25TA PO; -RISP0.253 PO; +TRAZ-213 PO
--- NOTE | 2018-10-14 06:55 | NUR ---
CALLED IN WR, NO ANSWER.
--- NOTE | 2018-10-14 07:07 | NUR ---
CALLED IN WR, NO ANSWER.
--- NOTE | 2018-10-14 07:37 | NUR ---
Pt called to triage, Pt not in waiting room
== END 2018-10-14 07:39 | disposition left against medical advice (07) ==
LOC: ER 06:53
DX: Z53.21 Procedure and treatment not carried out due to patient leaving prior to being seen by health care provider (principal)

== ENCOUNTER 2018-10-14 12:28 | Emergency (ER) | payer OTHER ==
[~2018-10-14] VITALS: Ht 185.4 cm; Wt 81.6 kg
[2018-10-14 12:28] VITALS: BP 146/107
[2018-10-14] MEDS ORDERED: BELLADONNA /PHENOBARB 5 ML UDC 5 ML UDC PO ONE (13:00)
[2018-10-14] MEDS ORDERED: LIDOCAINE VISCOUS 2% UD 15 ML UDC MM ONE (13:00)
[2018-10-14] MEDS ORDERED: MAG HYDROX/AL HYDROX/SIMETH 30 ML UDC PO ONE (13:00)
== END 2018-10-14 13:05 | disposition home or self-care (01) ==
LOC: ER 12:28
DX: K21.9 Gastro-esophageal reflux disease without esophagitis (principal); I10 Essential (primary) hypertension; F20.9 Schizophrenia, unspecified; F17.210 Nicotine dependence, cigarettes, uncomplicated; Z79.899 Other long term (current) drug therapy
CPT/HCPCS: 99282; A4606; Z7610

== ENCOUNTER 2018-10-16 21:46 | Emergency (ER) | payer OTHER ==
[~2018-10-16] VITALS: Ht 182.9 cm; Wt 79.4 kg
--- NOTE | 2018-10-16 21:46 | NUR ---
PT BIBSELF COMPLAINING OF SUICIDE IDEATION. STATES HE PLANS TO WALK INTO TRAFFIC. DENIES HI, A/V HALLUCINATIONS. PT WANTS TO VOLUNTARILY GO TO [facility]. PT AAOX4. RESPIRATIONS EVEN AND UNLABORED. NO ACUTE DISTRESS NOTED. SUICIDE PRECAUTION IN PLACE. WILL CONTINUE TO MONITOR.
--- NOTE | 2018-10-17 00:08 | NUR ---
AUTO MECHANIC APPRENTICE DRAWING BLOOD IN TRIAGE ROOM, AWAITING AVAILABLE BED
[2018-10-17 00:29] LABS: BASOPHILS % (AUTO) 0.3 % (0.0-2.0); EOSINOPHILS % (AUTO) 0.9 % (0.0-6.0); HEMATOCRIT 43 % (39-51); HEMOGLOBIN 14.7 g/dL (13.5-17.5); LYMPHOCYTES # (AUTO) 1.6 /CMM (0.8-4.8); LYMPHOCYTES % (AUTO) 22.7 % (20.0-44.0); MEAN CORPUSCULAR HGB CONC 34 g/dl (31.0-36.0); MEAN CORPUSCULAR VOLUME 89 fL (80-96); MONOCYTES # (AUTO) 0.8 /CMM (0.1-1.30); MONOCYTES % (AUTO) 11.3 % (2.0-12.0); NEUTROPHILS # (AUTO) 4.5 /CMM (1.8-8.9); NEUTROPHILS % (AUTO) 64.8 % (43.0-81.0); PLATELET COUNT (AUTO) 309 /CMM (150-450); RED BLOOD CELL COUNT(AUTO) 4.79 MIL/uL (4.5-6.0)
[2018-10-17 00:43] LABS: CALCIUM, SERUM 9.3 mg/dL (8.5-10.1); CARBON DIOXIDE 23 mmol/L (21-32); CHLORIDE 102 mmol/L (98-107); GLUCOSE 104 mg/dL (74-106); POTASSIUM 3.9 mmol/L (3.5-5.1); SODIUM SERUM 137 mmol/L (136-145); UREA NITROGEN, BLOOD 19 mg/dL (7-18)
[2018-10-17 00:48] LABS: ALANINE AMINOTRANSFERASE 30 U/L (12-78); ALKALINE PHOSPHATASE 75 U/L (46-116); ASPARTATE AMINOTRANSFERASE 20 U/L (15-37); BILIRUBIN,DIRECT 0.2 mg/dL (0.0-0.2); BILIRUBIN,TOTAL 1.1 mg/dL (0.2-1.0); TOTAL PROTEIN, SERUM 7.8 g/dL (6.4-8.2)
[2018-10-17 00:54] LABS: ACETAMINOPHEN 0 ug/ml (10-30); ALCOHOL, BLOOD < 3 mg/dL (0-0); SALICYLATE < 0.2 mg/dL (2.8-20.0)
--- NOTE | 2018-10-17 01:17 | NUR ---
PT RESTING QUIETLY IN WR, UNABLE TO PROVIDE URINE SAMPLE AT THIS TIME, ENCOURAGED MORE HYDRATION.
[2018-10-17 03:02] LABS: APPEARANCE,URINE CLEAR (CLEAR); BILIRUBIN,URINE NEGATIVE (NEGATIVE); BLOOD, URINE NEGATIVE Ery/uL (NEGATIVE); COLOR,URINE YELLOW (YELLOW); KETONES,URINE NEGATIVE (NEGATIVE); LEUKOCYTE ESTERASE ,URINE NEGATIVE (NEGATIVE); NITRITE, URINE NEGATIVE (NEGATIVE); PROTEIN,URINE NEGATIVE (NEGATIVE); UGLUCOSE NEGATIVE (NEGATIVE); UROBILINOGEN,URINE 0.2 EU/dL (0.2)
--- NOTE | 2018-10-17 04:00 | NUR ---
PT RESTING COMFORTABLY IN BED. VITAL SIGNS STABLE. NO ACUTE DISTRESS NOTED. WILL CONTINUE TO MONITOR
--- NOTE | 2018-10-17 07:22 | NUR ---
GAVE REPORT TO MARQUITA ODONNELL FOR MELISSA
--- NOTE | 2018-10-17 11:00 | NUR ---
CALLED TO GIVEN REPORT. PT PENDING TRANSFER.
--- NOTE | 2018-10-17 11:02 | NUR ---
ALICIA ETA AT 1230. TRIP# [id number].
[2018-10-17 11:25] VITALS: BP 142/77
--- NOTE | 2018-10-17 12:46 | NUR ---
TRANSFERED TO [facility] IN STABLE CONDITION.
== END 2018-10-17 12:49 ==
LOC: ER 21:49
DX: R45.851 Suicidal ideations (principal); I10 Essential (primary) hypertension; K21.9 Gastro-esophageal reflux disease without esophagitis; F20.9 Schizophrenia, unspecified; F17.200 Nicotine dependence, unspecified, uncomplicated; Z79.899 Other long term (current) drug therapy; Z98.890 Other specified postprocedural states
CPT/HCPCS: 36415; 80048-TC; 80076-TC; 80305; 81000-TC; 85025-TC; G0480

== ENCOUNTER 2018-12-08 02:30 | Emergency (ER) | payer OTHER ==
[~2018-12-08] VITALS: Ht 182.9 cm; Wt 79.4 kg
[~2018-12-08 02:30] MED LIST changes: -TRAZ-213 PO; +TRAZ-252 PO
--- NOTE | 2018-12-08 02:50 | NUR ---
pt bibself c/o acid reflux x 2 days, also c/o throat pain and n/v, placed on er bed 3, seen and eval done by dr rawls.
--- NOTE | 2018-12-08 03:00 | NUR ---
lab works ordered, tp refused to insert iv line.
[2018-12-08] MEDS ORDERED: MAG HYDROX/AL HYDROX/SIMETH 30 ML UDC PO ONE (04:00)
[2018-12-08] MEDS ORDERED: FAMOTIDINE/PF INJ 20 MG/2 ML VIAL IV ONE ×2 (04:00→04:58)
[2018-12-08 04:11] LABS: BASOPHILS % (AUTO) 0.2 % (0.0-2.0); EOSINOPHILS % (AUTO) 0.4 % (0.0-6.0); HEMATOCRIT 43 % (39-51); HEMOGLOBIN 14.8 g/dL (13.5-17.5); LYMPHOCYTES # (AUTO) 1.4 /CMM (0.8-4.8); LYMPHOCYTES % (AUTO) 8.4 % (20.0-44.0); MEAN CORPUSCULAR HGB CONC 34 g/dl (31.0-36.0); MEAN CORPUSCULAR VOLUME 90 fL (80-96); MONOCYTES # (AUTO) 1.9 /CMM (0.1-1.30); MONOCYTES % (AUTO) 11.1 % (2.0-12.0); NEUTROPHILS # (AUTO) 13.3 /CMM (1.8-8.9); NEUTROPHILS % (AUTO) 79.9 % (43.0-81.0); PLATELET COUNT (AUTO) 291 /CMM (150-450); RED BLOOD CELL COUNT(AUTO) 4.76 MIL/uL (4.5-6.0); WHITE BLOOD COUNT (AUTO) 16.7 K/uL (4.3-11.0)
[2018-12-08 04:23] LABS: CALCIUM, SERUM 9.3 mg/dL (8.5-10.1); CARBON DIOXIDE 25 mmol/L (21-32); CHLORIDE 102 mmol/L (98-107); CREATININE 1.1 mg/dL (0.6-1.3); GLUCOSE 107 mg/dL (74-106); SODIUM SERUM 143 mmol/L (136-145); UREA NITROGEN, BLOOD 29 mg/dL (7-18)
[2018-12-08 04:28] LABS: ALANINE AMINOTRANSFERASE 40 U/L (12-78); ALBUMIN 4.2 g/dL (3.4-5.0); ALKALINE PHOSPHATASE 61 U/L (46-116); ASPARTATE AMINOTRANSFERASE 37 U/L (15-37); BILIRUBIN,DIRECT 0.2 mg/dL (0.0-0.2); BILIRUBIN,TOTAL 2.4 mg/dL (0.2-1.0); LIPASE 89 U/L (73-393); TOTAL PROTEIN, SERUM 7.7 g/dL (6.4-8.2)
[2018-12-08] MEDS ORDERED: MAG HYDROX/AL HYDROX/SIMETH 30 ML UDC ONE (04:57)
--- NOTE | 2018-12-08 05:00 | NUR ---
meds ordered given pt insist to leave ama.
[2018-12-08] MEDS ORDERED: POTASSIUM CHLORIDE 20 MEQ TAB.PRT.SR PO ONE (05:30)
[2018-12-08] MEDS ORDERED: FAMOTIDINE (20 MG) 20 MG TABLET ONE (05:35)
[2018-12-08] MEDS ORDERED: PANTOPRAZOLE 40 MG TABLET.DR PO ONE ×2 (05:35→06:00)
[2018-12-08] MEDS ORDERED: POTASSIUM CHLORIDE 10 MEQ TABLET.SA ONE (05:48)
[2018-12-08] MEDS ORDERED: FAMOTIDINE (20 MG) 20 MG TABLET PO ONE (06:00)
--- NOTE | 2018-12-08 06:05 | NUR ---
called in for gallbladder ultrasound but patient is being discharged. nurse Aidee informed me that patient is AMA. informed Dr. Tellez that test will be cancelled.
--- NOTE | 2018-12-08 06:11 | NUR ---
Patient does not wish to proceed with medical care recommended by Dr. HEREDIA ). Patient given information related to possible complications, up to and including , which could occur as a result of leaving the hospital at this time. Patient verbalizes understanding of risks involved due to leaving against medical advice. Patient has signed AMA form.
[2018-12-08 06:13] VITALS: BP 133/80
[2018-12-08 06:21] LABS: APPEARANCE,URINE CLEAR (CLEAR); BILIRUBIN,URINE NEGATIVE (NEGATIVE); BLOOD, URINE NEGATIVE Ery/uL (NEGATIVE); COLOR,URINE DARK YELLO (YELLOW); KETONES,URINE 1+ (NEGATIVE); LEUKOCYTE ESTERASE ,URINE NEGATIVE (NEGATIVE); NITRITE, URINE NEGATIVE (NEGATIVE); PROTEIN,URINE TRACE mg/dl (NEGATIVE); UGLUCOSE NEGATIVE (NEGATIVE); UROBILINOGEN,URINE 0.2 EU/dL (0.2)
[2018-12-08 06:25] LABS: BACTERIA,URINE Few /HPF (None Seen); MUCUS,URINE Moderate /LPF (None Seen); RBC,URINE 0-2 /HPF (0-2); SQUAMOUS EPITHELIAL CELL,UR Rare /HPF (None Seen)
== END 2018-12-08 06:14 | disposition home or self-care (01) ==
LOC: ER 02:35
DX: R10.9 Unspecified abdominal pain (principal); R11.10 Vomiting, unspecified; E87.6 Hypokalemia; E80.6 Other disorders of bilirubin metabolism; F15.10 Other stimulant abuse, uncomplicated; R00.0 Tachycardia, unspecified; K21.9 Gastro-esophageal reflux disease without esophagitis; I10 Essential (primary) hypertension; F20.9 Schizophrenia, unspecified; F10.10 Alcohol abuse, uncomplicated; F17.200 Nicotine dependence, unspecified, uncomplicated; Y90.9 Presence of alcohol in blood, level not specified
CPT/HCPCS: 36415; 80048; 80076; 80305; 81001; 83690; 84484; 85025; 93005 ×2; 99284; A4606; 81000-TC; J3490

== ENCOUNTER 2018-12-09 07:09 | Emergency (ER) | payer OTHER ==
[~2018-12-09] VITALS: Ht 182.9 cm; Wt 79.4 kg
[~2018-12-09 07:09] MED LIST changes: +TRAZ-213 PO; -TRAZ-252 PO
--- NOTE | 2018-12-09 07:15 | NUR ---
patient was here recently and went AMA, feeling drained and acid reflux problem today. On room air, breathing evenly and unlabored. Connected to the monitor and pulse ox. kept comfortable. will continue to monitor accordingly.
[2018-12-09 07:16] VITALS: BP 135/88
--- NOTE | 2018-12-09 07:18 | NUR ---
DR. SAAVEDRA AT BEDSIDE FOR EVAL.
[2018-12-09 07:51] LABS: BASOPHILS # (AUTO) 0.1 /CMM (0.0-0.2); BASOPHILS % (AUTO) 0.9 % (0.0-2.0); EOSINOPHILS % (AUTO) 0.3 % (0.0-6.0); HEMATOCRIT 40 % (39-51); HEMOGLOBIN 13.6 g/dL (13.5-17.5); LYMPHOCYTES # (AUTO) 1.9 /CMM (0.8-4.8); LYMPHOCYTES % (AUTO) 18.1 % (20.0-44.0); MEAN CORPUSCULAR HGB CONC 34 g/dl (31.0-36.0); MEAN CORPUSCULAR VOLUME 92 fL (80-96); MONOCYTES # (AUTO) 1.8 /CMM (0.1-1.30); NEUTROPHILS # (AUTO) 6.7 /CMM (1.8-8.9); NEUTROPHILS % (AUTO) 63.7 % (43.0-81.0); PLATELET COUNT (AUTO) 244 /CMM (150-450); RED BLOOD CELL COUNT(AUTO) 4.33 MIL/uL (4.5-6.0); WHITE BLOOD COUNT (AUTO) 10.6 K/uL (4.3-11.0)
== END 2018-12-09 08:05 | disposition home or self-care (01) ==
LOC: ER 07:17
DX: F15.10 Other stimulant abuse, uncomplicated (principal); I10 Essential (primary) hypertension; K21.9 Gastro-esophageal reflux disease without esophagitis; F20.9 Schizophrenia, unspecified; F17.200 Nicotine dependence, unspecified, uncomplicated; Z98.890 Other specified postprocedural states; Z79.899 Other long term (current) drug therapy
CPT/HCPCS: 36415; 85025-TC

== ENCOUNTER 2018-12-19 09:54 | Emergency (ER) | payer OTHER ==
[~2018-12-19] VITALS: Ht 182.9 cm; Wt 77.1 kg
[2018-12-19 09:54] VITALS: BP 171/124
--- NOTE | 2018-12-19 10:20 | NUR ---
SEEN AND EXAMINED BY DR. SINCLAIR.
[2018-12-19] MEDS ORDERED: KETOROLAC TROMETHAMINE INJ 30 MG/ML VIAL IM ONE (11:00)
[2018-12-19] MEDS ORDERED: LIDOCAINE VISCOUS 2% UD 15 ML UDC MM ONE (11:00)
[2018-12-19] MEDS ORDERED: KETOROLAC TROMETHAMINE 15 MG/ML VIAL ONE (11:22)
[2018-12-19] MEDS ORDERED: LIDOCAINE VISCOUS 2% UD 15 ML UDC ONE (11:22)
--- NOTE | 2018-12-19 12:05 | NUR ---
Patient discharged to home in stable condition. Written and verbal after care instructions given. Patient verbalizes understanding of instruction.
== END 2018-12-19 12:06 | disposition home or self-care (01) ==
LOC: ER 09:58
DX: J06.9 Acute upper respiratory infection, unspecified (principal); I11.9 Hypertensive heart disease without heart failure; F20.9 Schizophrenia, unspecified; K21.9 Gastro-esophageal reflux disease without esophagitis; F10.10 Alcohol abuse, uncomplicated; F17.200 Nicotine dependence, unspecified, uncomplicated; Y90.9 Presence of alcohol in blood, level not specified
CPT/HCPCS: 71045; 96372; 99283; A4606; J1885

== ENCOUNTER 2018-12-19 23:57 | Emergency (ER) | payer OTHER ==
--- NOTE | 2018-12-20 | NUR ---
CALLED PT TO BE TRIAGED, NO ANSWER
--- NOTE | 2018-12-20 00:30 | NUR ---
CALLED PT TO BE TRIAGED. STATES "I DON'T WANT TO BE SEEN, I'M LEAVING"
--- NOTE | 2018-12-20 01:00 | NUR ---
CONFIRMED WITH PT, DOES NOT WISH TO BE SEEN
== END 2018-12-20 01:07 | disposition left against medical advice (07) ==
LOC: ER 12-20 00:01
DX: Z53.21 Procedure and treatment not carried out due to patient leaving prior to being seen by health care provider (principal)

== ENCOUNTER 2019-02-16 06:23 | Emergency (ER) | payer OTHER ==
[~2019-02-16] VITALS: Ht 182.9 cm; Wt 79.4 kg
--- NOTE | 2019-02-16 06:30 | NUR ---
PT BIBSELF C/O EPIGASTRIC PAIN. PT DENIES NAUSEA, VOMITTING, DIARRHEA, SOB, CP. PT AAOX4. RESPIRATIONS EVEN AND UNLABORED. SKIN WARM AND INTACT. AMBULATORY WITH STEADY GAIT. NO ACUTE DISTRESS NOTED AT THIS TIME.
[2019-02-16] MEDS ORDERED: PANTOPRAZOLE 40 MG TABLET.DR PO ONE ×2 (07:00→07:03)
[2019-02-16] MEDS ORDERED: HYDROMORPHONE 1 MG/1 ML DISP.SYRIN IV ONE (07:00)
[2019-02-16] MEDS ORDERED: FAMOTIDINE (20 MG) 20 MG TABLET PO ONE (07:00)
[2019-02-16] MEDS ORDERED: MAG HYDROX/AL HYDROX/SIMETH 30 ML UDC PO ONE (07:00)
[2019-02-16] MEDS ORDERED: FAMOTIDINE (20 MG) 20 MG TABLET ONE (07:02)
[2019-02-16] MEDS ORDERED: MAG HYDROX/AL HYDROX/SIMETH 30 ML UDC ONE (07:02)
--- NOTE | 2019-02-16 07:35 | NUR ---
Patient discharged to home in stable condition. Written and verbal after care instructions given. Patient verbalizes understanding of instruction. PT ambulatory with a steady gait
[2019-02-16 07:36] VITALS: BP 168/79
== END 2019-02-16 07:36 | disposition home or self-care (01) ==
LOC: ER 06:25
DX: K21.9 Gastro-esophageal reflux disease without esophagitis (principal); I10 Essential (primary) hypertension; F20.9 Schizophrenia, unspecified; F17.200 Nicotine dependence, unspecified, uncomplicated; Z79.899 Other long term (current) drug therapy

== ENCOUNTER 2019-02-18 06:31 | Emergency (ER) | payer OTHER ==
--- NOTE | 2019-02-18 06:51 | NUR ---
CALLED PT 3X. NO RESPONSE.
--- NOTE | 2019-02-18 07:13 | NUR ---
Pt states "Is it possible to be seen another time? "Opted to walk out- Left without being triaged.
== END 2019-02-18 07:15 | disposition home or self-care (01) ==
LOC: ER 06:31
DX: Z53.21 Procedure and treatment not carried out due to patient leaving prior to being seen by health care provider (principal)

== ENCOUNTER 2019-03-31 06:21 | Emergency (ER) | payer OTHER ==
[~2019-03-31] VITALS: Ht 182.9 cm; Wt 77.1 kg
[~2019-03-31 06:21] MED LIST changes: -TRAZ-213 PO; +TRAZ-252 PO
--- NOTE | 2019-03-31 07:01 | NUR ---
FILIPESENancyF WALKED IN. AAOX4. NO RESP DISTRESS NOTED. AMBULATORY. C/O NAUSEA AND VOMITING X 1 WEEK. PT CLAIMS THAT HE HAS BEEN ON METH AND NEED BLOOD WORK. NO NOTED VOMITING UPON ASSESSMENT. TO ER BED 14. AWAITING MD ORDER
--- NOTE | 2019-03-31 07:05 | NUR ---
URINE BEEN SENT TO LAB
[2019-03-31 07:26] LABS: APPEARANCE,URINE CLEAR (CLEAR); BILIRUBIN,URINE 1+ (NEGATIVE); BLOOD, URINE NEGATIVE Ery/uL (NEGATIVE); COLOR,URINE YELLOW (YELLOW); KETONES,URINE TRACE (NEGATIVE); LEUKOCYTE ESTERASE ,URINE NEGATIVE (NEGATIVE); NITRITE, URINE NEGATIVE (NEGATIVE); PROTEIN,URINE TRACE mg/dl (NEGATIVE); UGLUCOSE NEGATIVE (NEGATIVE); UROBILINOGEN,URINE 0.2 EU/dL (0.2)
--- NOTE | 2019-03-31 07:32 | NUR ---
MONONITROTOLUENE OPERATOR AT BEDSIDE
[2019-03-31 07:37] LABS: BACTERIA,URINE Few /HPF (None Seen); MUCUS,URINE Many /LPF (None Seen); RBC,URINE 0-2 /HPF (0-2); SQUAMOUS EPITHELIAL CELL,UR Few /HPF (None Seen); WBC,URINE 0-2 /HPF (0-3)
[2019-03-31 07:46] LABS: BASOPHILS # (AUTO) 0.1 /CMM (0.0-0.2); EOSINOPHILS % (AUTO) 1.6 % (0.0-6.0); HEMATOCRIT 33 % (39-51); HEMOGLOBIN 11.5 g/dL (13.5-17.5); LYMPHOCYTES # (AUTO) 2.1 /CMM (0.8-4.8); MEAN CORPUSCULAR HGB CONC 35 g/dl (31.0-36.0); MEAN CORPUSCULAR VOLUME 90 fL (80-96); MONOCYTES # (AUTO) 0.5 /CMM (0.1-1.30); MONOCYTES % (AUTO) 10.2 % (2.0-12.0); NEUTROPHILS # (AUTO) 2.5 /CMM (1.8-8.9); NEUTROPHILS % (AUTO) 47.2 % (43.0-81.0); PLATELET COUNT (AUTO) 342 /CMM (150-450); RED BLOOD CELL COUNT(AUTO) 3.67 MIL/uL (4.5-6.0); WHITE BLOOD COUNT (AUTO) 5.3 K/uL (4.3-11.0)
--- NOTE | 2019-03-31 07:46 | NUR ---
ITZEL AG CALLED FOR A 1:1 SITTER
[2019-03-31 07:50] LABS: CALCIUM, SERUM 9.1 mg/dL (8.5-10.1); CARBON DIOXIDE 26 mmol/L (21-32); CHLORIDE 99 mmol/L (98-107); GLUCOSE 99 mg/dL (74-106); SODIUM SERUM 136 mmol/L (136-145); UREA NITROGEN, BLOOD 15 mg/dL (7-18)
[2019-03-31 07:55] LABS: ALANINE AMINOTRANSFERASE 28 U/L (12-78); ALBUMIN 3.8 g/dL (3.4-5.0); ALKALINE PHOSPHATASE 71 U/L (46-116); ASPARTATE AMINOTRANSFERASE 18 U/L (15-37); BILIRUBIN,DIRECT 0.1 mg/dL (0.0-0.2); BILIRUBIN,TOTAL 0.8 mg/dL (0.2-1.0); TOTAL PROTEIN, SERUM 7.4 g/dL (6.4-8.2)
--- NOTE | 2019-03-31 07:55 | NUR ---
1:1 SITTER AT BEDSIDE
[2019-03-31 07:56] LABS: ACETAMINOPHEN 0 ug/ml (10-30); ALCOHOL, BLOOD < 3 mg/dL (0-0); SALICYLATE < 0.2 mg/dL (2.8-20.0)
--- NOTE | 2019-03-31 08:00 | NUR ---
PT DENIES HOMELESSNESS. MENTIONED HE IS CURRENTLY LIVING AT A TRANSITION HOME IN [place].
--- NOTE | 2019-03-31 08:18 | NUR ---
Patient discharged in stable condition. Written and verbal after care instructions given. Patient verbalizes understanding of instruction. Assisted in waiting room as he needs to [facility] for [facility].
[2019-03-31 08:19] VITALS: BP 147/98
== END 2019-03-31 08:19 | disposition home or self-care (01) ==
LOC: ER 06:21
DX: F15.10 Other stimulant abuse, uncomplicated (principal); I10 Essential (primary) hypertension; K21.9 Gastro-esophageal reflux disease without esophagitis; F20.9 Schizophrenia, unspecified; F10.10 Alcohol abuse, uncomplicated; F17.200 Nicotine dependence, unspecified, uncomplicated; F13.10 Sedative, hypnotic or anxiolytic abuse, uncomplicated; Y90.0 Blood alcohol level of less than 20 mg/100 ml
CPT/HCPCS: 36415; 80048-TC; 80076-TC; 80305; 81000-TC; 85025-TC; G0480

== ENCOUNTER 2019-04-03 03:16 | Emergency (ER) | payer OTHER ==
[~2019-04-03] VITALS: Ht 182.9 cm; Wt 77.1 kg
--- NOTE | 2019-04-03 03:42 | NUR ---
CALLED PT TO BE TRIAGED, NO ANSWER
--- NOTE | 2019-04-03 03:50 | NUR ---
CALLED PT TO BE TRIAGED, NO ANSWER
--- NOTE | 2019-04-03 03:58 | NUR ---
CALLED PT TO BE TRIAGED. PT STATES HE'S NOT READY TO BE SEEN BY MD AND REQUESTED TO STAY IN WAITING ROOM
--- NOTE | 2019-04-03 04:30 | NUR ---
PER HOSPITAL SECURITY, PT STAYING INSIDE WAITING ROOM RESTROOM FOR 30MIN AT A TIME AND CONSTANTLY GOING OUTSIDE LOOKING FOR CIGARETTE. STILL REFUSING TO BE SEEN BY MD AT THIS TIME.
--- NOTE | 2019-04-03 05:08 | NUR ---
CALLED PT TO BE TRIAGED, SLEEPING IN CHAIR. REFUSED TO WAKE UP
--- NOTE | 2019-04-03 05:57 | NUR ---
CALLED PT TO BE TRIAGED. NO ANSWER. PER HOSPITAL SECURITY, PT IN WAITING ROOM RESTROOM
[2019-04-03 06:23] VITALS: BP 163/106
--- NOTE | 2019-04-03 06:24 | NUR ---
PT BIBSELF C/O ACID REFLUX. -ABDOMINAL PAIN, -CP, -SOB, -N/V/D. PT AOX3. NAD NOTED. RESP EVEN AND UNLABORED. PT ON MONITOR IN BED 9. WILL CONTINUE TO MONITOR.
[2019-04-03] MEDS ORDERED: FAMOTIDINE (20 MG) 20 MG TABLET PO ONE (06:30)
[2019-04-03] MEDS ORDERED: MAG HYDROX/AL HYDROX/SIMETH 30 ML UDC PO ONE (06:30)
[2019-04-03] MEDS ORDERED: MAG HYDROX/AL HYDROX/SIMETH 30 ML UDC ONE (06:34)
[2019-04-03] MEDS ORDERED: FAMOTIDINE (20 MG) 20 MG TABLET ONE (06:34)
[2019-04-03] MEDS ORDERED: LIDOCAINE VISCOUS 2% UD 15 ML UDC ONE (06:38)
--- NOTE | 2019-04-03 06:43 | NUR ---
PT REFUSED BLOOD DRAW. AWARE.
--- NOTE | 2019-04-03 06:53 | NUR ---
Patient does not wish to proceed with medical care recommended by Dr. SANDERS. Patient given information related to possible complications, up to and including , which could occur as a result of leaving the hospital at this time. Patient verbalizes understanding of risks involved due to leaving against medical advice. Patient has signed AMA form. PT AMBULATORY WITH STEADY GAIT.
[2019-04-03] MEDS ORDERED: LIDOCAINE VISCOUS 2% UD 15 ML UDC MM ONE (07:00)
== END 2019-04-03 07:05 | disposition left against medical advice (07) ==
LOC: ER 03:20
DX: K21.9 Gastro-esophageal reflux disease without esophagitis (principal); I10 Essential (primary) hypertension; F20.9 Schizophrenia, unspecified; F17.200 Nicotine dependence, unspecified, uncomplicated; Z98.890 Other specified postprocedural states; Z79.899 Other long term (current) drug therapy

== ENCOUNTER 2019-04-05 00:18 | Emergency (ER) | payer OTHER ==
[~2019-04-05] VITALS: Ht 182.9 cm; Wt 79.4 kg
--- NOTE | 2019-04-05 00:30 | NUR ---
CALLED IN WAITING ROOM, NO ANSWER.
[2019-04-05 00:45] VITALS: BP 156/102
--- NOTE | 2019-04-05 00:45 | NUR ---
PT TO ER REQUESTING MEDICAL CLEARANCE FOR VOLUNTARY ADMISSION TO [facility] VITOR. ST SUICIDAL IDEATION WITH PLAN TO RUN INTO TRAFFIC. NO MEDICAL COMPLAINTS. SI PRECAUTIONS IMPLEMENTED. PERSONAL BELONGINGS REMOVED. PT PLACED INTO GOWN. SECRUTITY CALLED FOR WANDING,
[2019-04-05 01:38] LABS: APPEARANCE,URINE Clear (CLEAR); BILIRUBIN,URINE Negative (NEGATIVE); BLOOD, URINE Negative Ery/uL (NEGATIVE); COLOR,URINE Yellow (YELLOW); KETONES,URINE Negative (NEGATIVE); LEUKOCYTE ESTERASE ,URINE Negative (NEGATIVE); NITRITE, URINE Negative (NEGATIVE); PH,URINE 5.5 (5.0-8.0); PROTEIN,URINE Negative (NEGATIVE); UGLUCOSE Negative (NEGATIVE); UROBILINOGEN,URINE 0.2 EU/dL (0.2)
[2019-04-05 01:54] LABS: BASOPHILS % (AUTO) 0.8 % (0.0-2.0); EOSINOPHILS % (AUTO) 3.8 % (0.0-6.0); HEMATOCRIT 31 % (39-51); HEMOGLOBIN 10.9 g/dL (13.5-17.5); LYMPHOCYTES % (AUTO) 33.2 % (20.0-44.0); MEAN CORPUSCULAR HGB CONC 35 g/dl (31.0-36.0); MEAN CORPUSCULAR VOLUME 91 fL (80-96); MONOCYTES # (AUTO) 0.6 /CMM (0.1-1.30); NEUTROPHILS # (AUTO) 3.2 /CMM (1.8-8.9); NEUTROPHILS % (AUTO) 52.2 % (43.0-81.0); PLATELET COUNT (AUTO) 343 /CMM (150-450); RED BLOOD CELL COUNT(AUTO) 3.44 MIL/uL (4.5-6.0); WHITE BLOOD COUNT (AUTO) 6.1 K/uL (4.3-11.0)
[2019-04-05 02:03] LABS: CALCIUM, SERUM 8.5 mg/dL (8.5-10.1); CARBON DIOXIDE 29 mmol/L (21-32); CHLORIDE 102 mmol/L (98-107); GLUCOSE 90 mg/dL (74-106); POTASSIUM 3.2 mmol/L (3.5-5.1); SODIUM SERUM 140 mmol/L (136-145); UREA NITROGEN, BLOOD 12 mg/dL (7-18)
[2019-04-05 02:07] LABS: ALANINE AMINOTRANSFERASE 31 U/L (12-78); ALBUMIN 3.3 g/dL (3.4-5.0); ALCOHOL, BLOOD < 3 mg/dL (0-0); ALKALINE PHOSPHATASE 96 U/L (46-116); ASPARTATE AMINOTRANSFERASE 21 U/L (15-37); BILIRUBIN,DIRECT 0.1 mg/dL (0.0-0.2); BILIRUBIN,TOTAL 0.4 mg/dL (0.2-1.0); TOTAL PROTEIN, SERUM 6.5 g/dL (6.4-8.2)
[2019-04-05 02:12] LABS: ACETAMINOPHEN 0 ug/ml (10-30); SALICYLATE 0.5 mg/dL (2.8-20.0)
[2019-04-05] MEDS ORDERED: POTASSIUM CHLORIDE 20 MEQ TAB.PRT.SR PO ONE ×2 (02:30→04:06)
--- NOTE | 2019-04-05 03:00 | NUR ---
ERNST CRISIS TEAM AT BEDSIDE FOR EVAL .
--- NOTE | 2019-04-05 04:51 | NUR ---
PT RESTING IN GURNEY. NO SIGNS OF DISTRESS NOTED. PT VITAL SIGNS STABLE. WILL CONT TO MONITOR PT.
--- NOTE | 2019-04-05 05:00 | NUR ---
PT ACC[facility]PTED TO [facility]. # FOR REPORT [phone]
--- NOTE | 2019-04-05 05:14 | NUR ---
[facility] CALLED FOR TRANSPORT, c2. TRIP#[id number]
--- NOTE | 2019-04-05 05:22 | NUR ---
ETA FOR [facility] [id number]
== END 2019-04-05 07:27 ==
LOC: ER 00:24
DX: R45.851 Suicidal ideations (principal); E87.6 Hypokalemia; F15.10 Other stimulant abuse, uncomplicated; D64.9 Anemia, unspecified; I10 Essential (primary) hypertension; K21.9 Gastro-esophageal reflux disease without esophagitis; F17.200 Nicotine dependence, unspecified, uncomplicated; Z98.890 Other specified postprocedural states; Z79.899 Other long term (current) drug therapy
CPT/HCPCS: 36415; 80048; 80076; 80305; 80307; 80329; 81001; 85025; 99285; G0480; 81000-TC

== ENCOUNTER 2019-07-09 06:11 | Emergency (ER) | payer OTHER ==
[~2019-07-09] VITALS: Ht 182.9 cm; Wt 74.4 kg
--- NOTE | 2019-07-09 06:22 | NUR ---
CALLED FOR PT IN WR. NO RESPONSE
--- NOTE | 2019-07-09 06:40 | NUR ---
CALLED FOR PT IN WR. NO RESPONSE
--- NOTE | 2019-07-09 07:22 | NUR ---
patient came in to the ER suicidal, patient states, "i eant to kill myself, I want to run into traffic", +SI/-HI, wanted to go to [facility] as voluntary. On room air breathing evenly and unlabored. kept comfortable, will continue to monitor accordingly.
--- NOTE | 2019-07-09 07:24 | NUR ---
sitter at bedside for constant monitoring.
--- NOTE | 2019-07-09 07:39 | NUR ---
food and juice provided to patient.
--- NOTE | 2019-07-09 07:50 | NUR ---
MOON ANGLIN AT BEDSIDE FOR EVAL.
--- NOTE | 2019-07-09 08:10 | NUR ---
URINE SPECIMEN COLLECTED AND SENT TO LAB.
--- NOTE | 2019-07-09 08:12 | NUR ---
Social service consult requested by BELLE Joya for voluntary psychiatric admission. Pt. is a 58 year old male who came to [facility] complaining of suicidal ideations with a plan to run into traffic. DERREK met with the pt. bedside. Pt. is alert and oriented x 4. Pt. was sitting upright and eating an egg sandwich. Pt. appears disheveled. Pt. states he has been homeless for 3 months. Pt. was residing at in independent living in [place] for the past 3 months and left the facility. Pt. is ambulatory. Pt. states he belongs to an FSP but is not able to provide the name of the agency. His vc++ developer there is Kerry who is assisting him in finding permanent housing. Pt. states he is a . Pt. has history of psychiatric hospitalizations. His last hospitalization was 3 months ago at [facility]. Pt. is requesting voluntary admission to [facility]. Pt. is not consistent with MH services. Patient appears to have substance abuse concerns but will not elaborate. DERREK contacted Mason and inquired if there is a bed available at [facility]. Mason informed DERREK he will contact them and call back. [facility] called back stating there is a bed and he will have a bed hold for the pt. to go [facility]. DERREK updated BELLE Joya, BELLE France and Dr. Molina regarding pt. will have a bed at [facility]. DERREK to fax clinicals to when lab work is done.
--- NOTE | 2019-07-09 08:25 | NUR ---
ER PHLEB AT BEDSIDE FOR BLOOD DRAW.
[2019-07-09 08:30] LABS: BASOPHILS % (AUTO) 0.5 % (0.0-2.0); EOSINOPHILS % (AUTO) 2.4 % (0.0-6.0); HEMATOCRIT 38 % (39-51); LYMPHOCYTES # (AUTO) 1.5 /CMM (0.8-4.8); LYMPHOCYTES % (AUTO) 23.8 % (20.0-44.0); MEAN CORPUSCULAR HGB CONC 34 g/dl (31.0-36.0); MEAN CORPUSCULAR VOLUME 85 fL (80-96); MONOCYTES # (AUTO) 0.5 /CMM (0.1-1.30); MONOCYTES % (AUTO) 7.6 % (2.0-12.0); NEUTROPHILS # (AUTO) 4.3 /CMM (1.8-8.9); NEUTROPHILS % (AUTO) 65.7 % (43.0-81.0); PLATELET COUNT (AUTO) 392 /CMM (150-450); RED BLOOD CELL COUNT(AUTO) 4.47 MIL/uL (4.5-6.0); WHITE BLOOD COUNT (AUTO) 6.5 K/uL (4.3-11.0)
[2019-07-09 08:36] LABS: APPEARANCE,URINE Clear (CLEAR); BILIRUBIN,URINE Negative (NEGATIVE); BLOOD, URINE Negative Ery/uL (NEGATIVE); COLOR,URINE Yellow (YELLOW); KETONES,URINE Negative (NEGATIVE); LEUKOCYTE ESTERASE ,URINE Negative (NEGATIVE); NITRITE, URINE Negative (NEGATIVE); PH,URINE 6.5 (5.0-8.0); PROTEIN,URINE Negative (NEGATIVE); UGLUCOSE Negative (NEGATIVE); UROBILINOGEN,URINE 0.2 EU/dL (0.2)
[2019-07-09 08:43] LABS: ALANINE AMINOTRANSFERASE 44 U/L (12-78); ALBUMIN 3.6 g/dL (3.4-5.0); ALCOHOL, BLOOD 52 mg/dL (0-0); ALKALINE PHOSPHATASE 117 U/L (46-116); ASPARTATE AMINOTRANSFERASE 41 U/L (15-37); BILIRUBIN,DIRECT 0.1 mg/dL (0.0-0.2); BILIRUBIN,TOTAL 0.4 mg/dL (0.2-1.0); CALCIUM, SERUM 8.9 mg/dL (8.5-10.1); CARBON DIOXIDE 25 mmol/L (21-32); CHLORIDE 103 mmol/L (98-107); CREATININE 0.9 mg/dL (0.6-1.3); GLUCOSE 56 mg/dL (74-106); POTASSIUM 3.4 mmol/L (3.5-5.1); SODIUM SERUM 140 mmol/L (136-145); TOTAL PROTEIN, SERUM 7.5 g/dL (6.4-8.2); UREA NITROGEN, BLOOD 10 mg/dL (7-18)
[2019-07-09 08:45] LABS: ACETAMINOPHEN 0 ug/ml (10-30); SALICYLATE < 0.2 mg/dL (2.8-20.0)
--- NOTE | 2019-07-09 09:35 | NUR ---
DERREK faxed clinicals to [facility] intake . Addendum: 07/09/19 at 0947 by MOON ANGLIN DERREK contacted Mason at [facility] and informed him that the clinicals were faxed. Mason informed DERREK they will have a bed for the pt. at [facility].
--- NOTE | 2019-07-09 11:05 | NUR ---
DERREK received a call from Heraclio at [facility] intake requesting for Physician documentation stating, " pt. is medically cleared." He requested for DERREK to fax documentation and call him back at . DERREK called RN Román in ED and requested him to have Dr. Molina state the above mentioned comment in his documentation.
--- NOTE | 2019-07-09 11:27 | NUR ---
DERREK faxed " medically cleared" physician statement to intake. DERREK called Dhiraj who informed DERREK that he did receive the fax and to have nurse to nurse report called to staffing recruiter Smiley. Accepting physician at [facility] is Dr. Rider and psychiatrist is Dr. Vazquez. DERREK gave the information to Román to call for report.
[2019-07-09 11:36] VITALS: BP 147/91
--- NOTE | 2019-07-09 11:36 | NUR ---
[facility] ACCEPTED THE PT NUMBER FOR REPORT: [phone] ACCEPTING MD: PSYCHIATRIST: .
--- NOTE | 2019-07-09 11:39 | NUR ---
REPORT GIVEN TO BELLE HERRERA FOR MELISSA.
--- NOTE | 2019-07-09 11:50 | NUR ---
CALLED AM SULEMAN FOR BLS SERVICE CLERK. ETA 2010
--- NOTE | 2019-07-09 13:21 | NUR ---
REPORT GIVEN TO CHANTELLE PABON FOR MELISSA/[place]
== END 2019-07-09 13:24 ==
LOC: ER 06:14
DX: F15.10 Other stimulant abuse, uncomplicated (principal); F28 Other psychotic disorder not due to a substance or known physiological condition; F20.9 Schizophrenia, unspecified; I10 Essential (primary) hypertension; K21.9 Gastro-esophageal reflux disease without esophagitis; F17.200 Nicotine dependence, unspecified, uncomplicated; Z98.890 Other specified postprocedural states; Z79.899 Other long term (current) drug therapy
CPT/HCPCS: 36415; 80048; 80076; 80305; 80307; 80329; 81001; 84484; 85025; 99285; G0480; 81000-TC

== ENCOUNTER 2019-09-27 16:49 | Emergency (ER) | payer OTHER ==
[~2019-09-27] VITALS: Ht 177.8 cm; Wt 74.8 kg
[2019-09-27 17:14] VITALS: BP 145/88
[2019-09-27] MEDS ORDERED: LIDOCAINE 1%-EPI 1:100,000 20 ML VIAL TP ONE (17:30)
[2019-09-27] MEDS ORDERED: HYDROMORPHONE 1 MG/1 ML DISP.SYRIN IM ONE (17:30)
[2019-09-27] MEDS ORDERED: LIDOCAINE 1%-EPI 1:100,000 20 ML VIAL ONE (18:46)
[2019-09-27] MEDS ORDERED: FENTANYL PF 100MCG/2ML AMPUL ONE (19:15)
--- NOTE | 2019-09-27 19:20 | NUR ---
VERBAL ORDER FROM DR WATSON: FENTANYL 25MCG IM X1 NOW
[2019-09-27] MEDS ORDERED: FENTANYL PF 100MCG/2ML AMPUL IV ONE (20:00)
== END 2019-09-27 20:16 | disposition home or self-care (01) ==
LOC: ER 16:51
DX: L02.31 Cutaneous abscess of buttock (principal); F20.9 Schizophrenia, unspecified; F19.10 Other psychoactive substance abuse, uncomplicated; F17.200 Nicotine dependence, unspecified, uncomplicated; F10.10 Alcohol abuse, uncomplicated; Y90.9 Presence of alcohol in blood, level not specified; Z59.0 Homelessness; Z98.890 Other specified postprocedural states
CPT/HCPCS: 10060; 96372; 99283; A6403; A6407; J3010; J3490

== ENCOUNTER 2019-10-19 16:04 | Emergency (ER) | payer OTHER ==
[~2019-10-19] VITALS: Ht 182.9 cm; Wt 81.6 kg
--- NOTE | 2019-10-19 16:13 | NUR ---
CAME IN FOR CHRONIC EPIGASTRIC PAIN W/ NAUSEA AND VOMITING , ALSO C/O L BUTTOCK PAIN POSSIBLE ABSCESS, TO ER BED 11, HOOKED TO MONITOR, CHANGED TO HOSP GOWN, PROVIDED W WARM BLANKET, AWAITING MD RIZVI.
--- NOTE | 2019-10-19 16:40 | NUR ---
DR MOY AT BEDSIDE
[2019-10-19] MEDS ORDERED: PANTOPRAZOLE 40 MG VIAL ONE (16:57)
[2019-10-19] MEDS ORDERED: AZITHROMYCIN 250 MG TABLET ONE (16:58)
[2019-10-19] MEDS ORDERED: FAMOTIDINE/PF INJ 20 MG/2 ML VIAL IV ONE ×2 (16:58→17:00)
[2019-10-19] MEDS ORDERED: ALBUTEROL FS 2.5 MG/0.5 ML VIAL.NEB NEB ONE (17:00)
[2019-10-19] MEDS ORDERED: PANTOPRAZOLE 40 MG VIAL IV ONE (17:00)
[2019-10-19] MEDS ORDERED: AZITHROMYCIN 250 MG TABLET PO ONE (17:00)
[2019-10-19] MEDS ORDERED: PANTOPRAZOLE 40 MG TABLET.DR PO ONE (17:42)
[2019-10-19] MEDS ORDERED: FAMOTIDINE (20 MG) 20 MG TABLET ONE (17:42)
[2019-10-19] MEDS: FAMOTIDINE (20 MG) 20 MG TABLET PO ONE ×2 (17:45→17:47)
[2019-10-19] MEDS: PANTOPRAZOLE 40 MG TABLET.DR PO ONE ×2 (17:45→17:47)
[2019-10-19] MEDS ORDERED: ALBUTEROL FS 2.5 MG/3 ML VIAL.NEB ONE (17:54)
--- NOTE | 2019-10-19 18:09 | NUR ---
Richard malone in [facility] - 10/19/19 at 1809 by BRADEN PATIENT PROVIDED
--- NOTE | 2019-10-19 18:49 | NUR ---
PATIENT SIGNED HOMELESS WAIVER FORM.
--- NOTE | 2019-10-19 19:01 | NUR ---
Patient given written and verbal discharge instructions. Patient verbalizes understanding of instructions. Patient is ambulatory with steady gait. Refuses offer of long term placement. Patient given list of available shelters in surrounding area. All belongings given to patient, name band removed. In proper clothing upon discharge.
[2019-10-19 19:05] VITALS: BP 149/104
== END 2019-10-19 19:06 | disposition home or self-care (01) ==
LOC: ER 16:05
DX: K21.9 Gastro-esophageal reflux disease without esophagitis (principal); J44.9 Chronic obstructive pulmonary disease, unspecified; F17.200 Nicotine dependence, unspecified, uncomplicated; Z98.890 Other specified postprocedural states
CPT/HCPCS: 94640; 96374; 96375; 99283; C9113; J3490

== ENCOUNTER 2019-10-27 21:16 | Emergency (ER) | payer OTHER ==
[~2019-10-27] VITALS: Ht 182.9 cm; Wt 79.4 kg
--- NOTE | 2019-10-28 00:47 | NUR ---
PT PRESENTED TO THE ER WITH A C/O BACK PAIN SINCE SUNDAY DUE TO HEAVY LIFTING. PT IS ALSO C/O BEING OUT OF HIS BLOOD PRESSURE MEDICATION AND IS C/O RASH ON HIS SCROTUM AND PENIS.
--- NOTE | 2019-10-28 00:47 | NUR ---
Female senior qualitative researcher accompanied MALE patient for Lencho BATEMAN PA-C.
[2019-10-28] MEDS ORDERED: DEXAMETHASONE SOD PHOSPHATE 10 MG/ML VIAL ONE (00:50)
[2019-10-28] MEDS ORDERED: KETOROLAC TROMETHAMINE INJ 60 MG/2 ML VIAL IM ONE ×2 (00:51→01:00)
[2019-10-28] MEDS ORDERED: CLONIDINE HCL 0.1 MG TABLET ONE (00:51)
[2019-10-28] MEDS ORDERED: CYCLOBENZAPRINE 10 MG TABLET ONE (00:51)
[2019-10-28] MEDS ORDERED: DEXAMETHASONE SOD PHOSPHATE 4 MG/ML VIAL IM ONE (01:00)
[2019-10-28] MEDS ORDERED: CYCLOBENZAPRINE 10 MG TABLET PO ONE (01:00)
[2019-10-28] MEDS ORDERED: CLONIDINE HCL 0.1 MG TABLET PO ONE (01:00)
--- NOTE | 2019-10-28 01:06 | NUR ---
PT REC'D MEDICATION ORDERED.
--- NOTE | 2019-10-28 01:37 | NUR ---
Patient discharged to home in stable condition. Written and verbal after care instructions given. Patient verbalizes understanding of instruction AND RX. PT REC'D HOMELESS RESIDENTIAL RESOURCES AND CLINC RESOURSE PAPERWORK. PT HAS BUS ACCESS AND IS ALREADY SIGNED INTO A RESIDENTIAL. PT AMBULATED OUT WITH A STEADY GAIT. MD AWARE OF PT'S BP 165/110 AND PT'S DESIRE TO LEAVE TO GET BACK TO HIS RESIDENTIAL. PT REC'D HYGEINE SUPPLIES PRIOR TO LEAVING.
[2019-10-28 01:39] VITALS: BP 165/110
== END 2019-10-28 01:44 | disposition home or self-care (01) ==
LOC: ER 21:16
DX: S39.012A Strain of muscle, fascia and tendon of lower back, initial encounter (principal); I10 Essential (primary) hypertension; F10.10 Alcohol abuse, uncomplicated; F17.200 Nicotine dependence, unspecified, uncomplicated; Y90.9 Presence of alcohol in blood, level not specified; X58.XXXA Exposure to other specified factors, initial encounter; Y93.89 Activity, other specified; Y92.89 Other specified places as the place of occurrence of the external cause; Y99.0 Civilian activity done for income or pay
CPT/HCPCS: 96372 ×2; 99283; J1100; J1885

== ENCOUNTER 2019-10-30 05:35 | Emergency (ER) | payer OTHER ==
[~2019-10-30] VITALS: Ht 182.9 cm; Wt 79.4 kg
[2019-10-30 05:35] VITALS: BP 151/96
== END 2019-10-30 07:46 | disposition home or self-care (01) ==
LOC: ER 05:47
DX: Z53.21 Procedure and treatment not carried out due to patient leaving prior to being seen by health care provider (principal); K08.89 Other specified disorders of teeth and supporting structures; Z59.0 Homelessness

== ENCOUNTER 2019-10-30 07:37 | Emergency (ER) | payer OTHER ==
[~2019-10-30] VITALS: Ht 182.9 cm; Wt 79.8 kg
--- NOTE | 2019-10-30 07:45 | NUR ---
CAME IN FOR TOOTH ACHE AND ASKING FOR PANTS AND SHIRT, ALSO C/O ABDOMINAL PAIN. TO ER BED 13, HOOKED TO MONITOR, CHANGED TO HOSP GOWN, PROVIDED W WARM BLANKET, AOx 4, BREATHING EVEN AND UNLABORED, NAD NOTED. AWAITING MD RIZVI
--- NOTE | 2019-10-30 08:20 | NUR ---
Social service consult requested by Dr. Cantor for homelessness. Per chart review and MD notes, Pt is a 58-year-old male self referred, who came to [facility] ED complaining of reflux symptoms and also has tooth pain. UNIVERSAL WINDING MACHINE OPERATOR met with the pt bedside. UNIVERSAL WINDING MACHINE OPERATOR introduced self and explained her role. Pt. is alert and oriented x 4. Pt clothes appeared dirty. Pt's mood is euthymic. Pt. states he currently resides at [facility] located at [address] [place] [address] in [place]. Pt. has been residing there for the past 2 months. Pt. had his belongings in a cart by his bed. Pt receives GR and Food stamps monthly. Pt. is , however states he is currently does not have any VA benefits and is in process of getting VA benefits. Pt. has a psychiatric diagnosis of PTSD and states he hears "voices" at times. Pt. is currently denying suicidal/homicidal ideations and visual/auditory hallucinations at this time. Pt. denies current drug/alcohol use. Pt smokes up to 5 cigarettes per day. UNIVERSAL WINDING MACHINE OPERATOR provided pt with active listening and supportive counseling. UNIVERSAL WINDING MACHINE OPERATOR educated pt. on the health hazards of smoking cigarettes. Pt states he will go back to [facility] once discharged. Pt was provided with a meal, clothing and shoes. Pt. also provided with TAP card. The following homeless resource packet was given to the pt: [facility] 9812-9193 Winter Detention Program list, [facility] located at [address] [facility] ; A [place], [address] [place] [address], [place]. [place] ; [employer] [facility] [place], [address] [facility] [facility] ; [facility] Homeless Resource Directory which includes food stamps, transitional housing, showers and hot meals etc; Mental Health clinics such as [facility] ; [facility] ; Health clinics;[facility] and Alcohol treatment centers such as [facility], ; [facility] Substance Abuse Hotline and [facility] . Homeless Patient Waiver Form was signed by the pt. and placed in pt's chart.
[2019-10-30] MEDS ORDERED: MAG HYDROX/AL HYDROX/SIMETH 30 ML UDC ONE (08:48)
[2019-10-30] MEDS ORDERED: LIDOCAINE VISCOUS 2% UD 15 ML UDC ONE (08:48)
[2019-10-30] MEDS: MAG HYDROX/AL HYDROX/SIMETH 30 ML UDC PO ONE (08:51)
[2019-10-30] MEDS: LIDOCAINE VISCOUS 2% UD 15 ML UDC MM ONE (08:51)
--- NOTE | 2019-10-30 08:58 | NUR ---
PER DERREK MUSTAFA, PATIENT WILL GO TO [facility]. BREAKFAST TRAY PROVIDED. TAP CARD RPOVIDED. PROVIDED W CLOTHES AND SHOES.
--- NOTE | 2019-10-30 10:32 | NUR ---
PATIENT CLEANING UP SELF, REQUESTED ADDITIONAL MINUTES TO FINISH
[2019-10-30 12:37] VITALS: BP 137/76
--- NOTE | 2019-10-30 12:37 | NUR ---
PATIENT SIGNED HOMELESS DISCHARGE FORM.
--- NOTE | 2019-10-30 13:18 | NUR ---
Patient given written and verbal discharge instructions. Patient verbalizes understanding of instructions. Patient is ambulatory with steady gait. Refuses offer of detention placement. Patient given list of available shelters in surrounding area. Tap card provided, all belongings returned. Discharged in proper clothing. Name band removed.
== END 2019-10-30 13:19 | disposition home or self-care (01) ==
LOC: ER 07:38
DX: K08.89 Other specified disorders of teeth and supporting structures (principal); K21.9 Gastro-esophageal reflux disease without esophagitis; I10 Essential (primary) hypertension; F17.200 Nicotine dependence, unspecified, uncomplicated; Z98.890 Other specified postprocedural states

== ENCOUNTER 2019-12-19 08:24 | Emergency (ER) | payer OTHER ==
[~2019-12-19] VITALS: Ht 170.2 cm; Wt 74.8 kg
[2019-12-19] MEDS ORDERED: KETOROLAC TROMETHAMINE INJ 60 MG/2 ML VIAL IM ONE (09:30)
[2019-12-19] MEDS ORDERED: KETOROLAC TROMETHAMINE INJ 30 MG/ML VIAL ONE (09:45)
[2019-12-19 09:58] VITALS: BP 147/84
--- NOTE | 2019-12-19 09:59 | NUR ---
Patient discharged to home in stable condition. Written and verbal after care instructions given. Patient verbalizes understanding of instruction.
== END 2019-12-19 10:01 | disposition home or self-care (01) ==
LOC: ER 08:28
DX: S33.5XXA Sprain of ligaments of lumbar spine, initial encounter (principal); I10 Essential (primary) hypertension; K21.9 Gastro-esophageal reflux disease without esophagitis; F17.200 Nicotine dependence, unspecified, uncomplicated; Z98.890 Other specified postprocedural states; X58.XXXA Exposure to other specified factors, initial encounter; Y93.01 Activity, walking, marching and hiking; Y92.89 Other specified places as the place of occurrence of the external cause; Y99.8 Other external cause status
CPT/HCPCS: 96372; 99283; J1885

== ENCOUNTER 2020-04-17 03:19 | Emergency (ER) | payer OTHER ==
[~2020-04-17] VITALS: Ht 182.9 cm; Wt 81.6 kg
[2020-04-17 03:32] VITALS: BP 171/119
--- NOTE | 2020-04-17 04:11 | NUR ---
Prescriptions provided and exaplined to the [facility].
--- NOTE | 2020-04-17 04:11 | NUR ---
Patient discharged to home in stable condition. Written and verbal after care instructions given. Patient verbalizes understanding of instruction.
== END 2020-04-17 04:12 | disposition home or self-care (01) ==
LOC: ER 03:19
DX: Z76.0 Encounter for issue of repeat prescription (principal); K21.9 Gastro-esophageal reflux disease without esophagitis; I10 Essential (primary) hypertension; Z98.890 Other specified postprocedural states